=== PATIENT | male | born 1980 | race African-American/Black ===

== ENCOUNTER 2017-01-16 04:27 | Emergency (ER) | payer OTHER ==
[2017-01-16 04:35] VITALS: BP 119/74; PULSE 75; RESP 20; TEMP 98.8
[2017-01-16] MEDS ORDERED: CEPHALEXIN 500 MG CAP PO STA (05:18)
[2017-01-16] MEDS ORDERED: IBUPROFEN 800 MG TAB PO STA (05:19)
--- NOTE | 2017-01-16 05:24 | ED ---
ENT HPI - General Chief complaint: ENT Stated complaint: Sore Throat Time Seen by Provider: 01/16/17 05:00 Source: patient, family, RN notes reviewed Mode of arrival: ambulatory Limitations: no limitations - History of Present Illness Initial comments: Is a 36-year-old male who presents with complaints of 2 days of sore throat and pain with swallowing. He states his is recently sick he denies any overt fevers chills or sweats just pain with swallowing. He has also had a slight cough but no phlegm production. - Related Data Home Medications Medication Instructions Recorded Confirmed Insulin Aspart [NovoLOG] 12 unit SQ TID 04/22/16 01/16/17 Insulin Glargine [Lantus] 42 unit SQ HS 04/22/16 01/16/17 Previous Rx's Medication Instructions Recorded Cephalexin [Keflex] 500 mg PO Q6HR #40 cap 01/16/17 Ibuprofen [Motrin] 800 mg PO Q6HR PRN #20 tab 01/16/17 Allergies Allergy/AdvReac Type Severity Reaction Status Date / Time No Known Allergies Allergy Verified 01/16/17 04:50 Review of Systems ROS Statement: Those systems with pertinent positive or pertinent negative responses have been documented in the HPI. ROS Other: All systems not noted in ROS Statement are negative. Past Medical History Past Medical History: Asthma, Diabetes Mellitus, GERD/Reflux Additional Past Medical History / Comment(s): ULCERS History of Any Multi-Drug Resistant Organisms: None Reported Past Surgical History: No Surgical Hx Reported Additional Past Surgical History / Comment(s): TOOTH EXTRACTIONS Past Anesthesia/Blood Transfusion Reactions: No Reported Reaction Past Psychological History: No Psychological Hx Reported Smoking Status: Current every day smoker Past Alcohol Use History: None Reported Additional Past Alcohol Use History / Comment(s): STARTED SMOKING AT AGE 13 - QUIT CIGARETTTES 2.5 YEARS AGO NOW SMOKES 1-2 CIGARS DAILY Past Drug Use History: Marijuana Additional Drug Use History / Comment(s): DENIES ANY DRUG USE CURRENTLY - Past Family History Father Family Medical History: Diabetes Mellitus Additional Family Medical History / Comment(s): GLAUCOMA Mother Family Medical History: Diabetes Mellitus, Seizure Disorder General Exam - General Exam Comments Initial Comments: This is a well-developed well-nourished awake alert oriented times x 3 male Limitations: no limitations General appearance: alert, in no apparent distress Head exam: Present: atraumatic, normocephalic, normal inspection Eye exam: Present: normal appearance, PERRL, EOMI. Absent: scleral icterus, conjunctival injection, periorbital swelling ENT exam: Present: other (Posterior pharyngeal erythema no definite exudates) Neck exam: Present: normal inspection, tenderness, full ROM, lymphadenopathy. Absent: meningismus Respiratory exam: Present: normal lung sounds bilaterally. Absent: respiratory distress, wheezes, rales, rhonchi, stridor Cardiovascular Exam: Present: regular rate, normal rhythm, normal heart sounds. Absent: systolic murmur, diastolic murmur, rubs, gallop, clicks Extremities exam: Present: normal inspection, full ROM, normal capillary refill. Absent: tenderness, pedal edema, joint swelling, calf tenderness Neurological exam: Present: alert, oriented X3, CN II-XII intact Psychiatric exam: Present: normal affect, normal mood Skin exam: Present: warm, dry, intact, normal color. Absent: rash Course Vital Signs 01/16/17 04:32 Temperature 98.8 F Pulse Rate 75 Respiratory 20 Rate Blood Pressure 119/74 O2 Sat by Pulse 98 Oximetry Medical Decision Making - Medical Decision Making The presentation is consistent with tonsillitis he will be placed on appropriate medication. Disposition Clinical Impression: Tonsillitis Disposition: HOME SELF-CARE Condition: Good Instructions: Tonsillitis (ED) Prescriptions: Cephalexin [Keflex] 500 mg PO Q6HR #40 cap Ibuprofen [Motrin] 800 mg PO Q6HR PRN #20 tab PRN Reason: Pain
== END 2017-01-16 05:27 | disposition home or self-care (01) ==
LOC: EC 04:27
DX: J03.90 Acute tonsillitis, unspecified (principal); E11.9 Type 2 diabetes mellitus without complications; F17.210 Nicotine dependence, cigarettes, uncomplicated; Z79.4 Long term (current) use of insulin
CPT/HCPCS: 99282

== ENCOUNTER 2017-04-02 09:39 | Observation (INO) | payer OTHER ==
[2017-04-02] MEDS ORDERED: SODIUM CHLORIDE 0.9% 1,000 ML IV STA (09:59)
[2017-04-02] MEDS ORDERED: ONDANSETRON 4 MG/2 ML VIAL IVP STA (09:59)
[2017-04-02] MEDS ORDERED: HYDROmorphone 1 MG/ML 1 ML SYRINGE IVP STA (09:59)
--- NOTE | 2017-04-02 10:06 | ED ---
Abdominal Pain HPI - General Chief Complaint: Abdominal Pain Stated Complaint: side pain Time Seen by Provider: 04/02/17 09:54 Source: patient, RN notes reviewed Mode of arrival: ambulatory Limitations: no limitations - History of Present Illness Initial Comments: 36-year-old male presents to the emergency department with a chief complaint of right flank pain. Patient has noticed this for the past few days. It been getting worse today. Patient does admit to a history kidney stones and states this feels much like it. Patient has noticed some blood in the urine. Patient denies any fever chills with this. Patient denies any cough cold runny nose. Patient states she was concerned due to his continued pain and discomfort so he thought that he should be evaluated. Patient states is not currently having any other symptoms at this time. Patient denies any recent fever, chills, shortness of breath, chest pain, back pain, nausea vomiting, numbness or tingling, constipation or diarrhea, headaches or visual changes, or any other current symptoms. - Related Data Home Medications Medication Instructions Recorded Confirmed Insulin Aspart [NovoLOG] 12 unit SQ TID 04/22/16 01/16/17 Insulin Glargine [Lantus] 42 unit SQ HS 04/22/16 01/16/17 Previous Rx's Medication Instructions Recorded Cephalexin [Keflex] 500 mg PO Q6HR #40 cap 01/16/17 Ibuprofen [Motrin] 800 mg PO Q6HR PRN #20 tab 01/16/17 Allergies Allergy/AdvReac Type Severity Reaction Status Date / Time No Known Allergies Allergy Verified 04/02/17 09:46 Review of Systems ROS Statement: Those systems with pertinent positive or pertinent negative responses have been documented in the HPI. ROS Other: All systems not noted in ROS Statement are negative. Past Medical History Past Medical History: Asthma, Diabetes Mellitus, GERD/Reflux Additional Past Medical History / Comment(s): ULCERS History of Any Multi-Drug Resistant Organisms: None Reported Past Surgical History: No Surgical Hx Reported Additional Past Surgical History / Comment(s): TOOTH EXTRACTIONS Past Anesthesia/Blood Transfusion Reactions: No Reported Reaction Past Psychological History: No Psychological Hx Reported Smoking Status: Current every day smoker Past Alcohol Use History: Occasional Additional Past Alcohol Use History / Comment(s): STARTED SMOKING AT AGE 13 - QUIT CIGARETTTES 2.5 YEARS AGO NOW SMOKES 1-2 CIGARS DAILY Past Drug Use History: Marijuana Additional Drug Use History / Comment(s): DENIES ANY DRUG USE CURRENTLY - Past Family History Father Family Medical History: Diabetes Mellitus Additional Family Medical History / Comment(s): GLAUCOMA Mother Family Medical History: Diabetes Mellitus, Seizure Disorder General Exam - General Exam Comments Initial Comments: General: The patient is awake and alert, in no distress, and does not appear acutely ill. Eye: Pupils are equal, round and reactive to light, extra-ocular movements are intact; there is normal conjunctiva bilaterally. No signs of icterus. Ears, nose, mouth and throat: There are moist mucous membranes. Neck: The neck is supple, there is no tenderness. Cardiovascular: There is a regular rate and rhythm. No murmur, rub or gallop is appreciated. Respiratory: Lungs are clear to auscultation, respirations are non-labored, breath sounds are equal. No wheezes, stridor, rales, or rhonchi. Gastrointestinal: Soft, non-distended, non-tender abdomen without masses or organomegaly noted. There is no rebound or guarding present. No CVA tenderness. Bowel sounds are unremarkable. Back: There is no tenderness to palpation in the midline. There is no obvious deformity. No rashes noted. Musculoskeletal: Normal ROM, no tenderness, There is no pedal edema. There is no calf tenderness or swelling. Sensation intact. Pulses equal bilaterally 2+. Neurological: CN II-XII intact, There are no obvious motor or sensory deficits. Coordination appears grossly intact. Speech is normal. Skin: Skin is warm and dry and no rashes or lesions are noted. Psychiatric: Cooperative, appropriate mood & affect, normal judgment. Limitations: no limitations Course Vital Signs 04/02/17 09:41 Temperature 97.8 F Pulse Rate 93 Respiratory 18 Rate Blood Pressure 131/80 O2 Sat by Pulse 97 Oximetry Medical Decision Making - Medical Decision Making 36-year-old male presents to the emergency Department chief complaint of right- sided flank pain. At this time patient does have an elevated amylase and lipase with suspicion for acute pancreatitis with a ultrasound showing gallbladder sludge. He has some tenderness in the right upper quadrant on ultrasound. This appears only blood cell count and no fever. This time we did discuss that we will admit the patient for IV hydration. She does agree with the plan. All questions have been answered. - Lab Data Result diagrams: 04/02/17 10:25 04/02/17 10:25 Lab Results 04/02/17 04/02/17 04/02/17 Range/Units 09:48 10:25 10:25 WBC 5.9 (3.8-10.6) k/uL RBC 5.08 (4.30-5.90) m/uL Hgb 16.0 (13.0-17.5) gm/dL Hct 45.6 (39.0-53.0) % MCV 89.9 (80.0-100.0) fL MCH 31.5 (25.0-35.0) pg MCHC 35.1 (31.0-37.0) g/dL RDW 13.2 (11.5-15.5) % Plt Count 204 (150-450) k/uL Neutrophils % 55 % Lymphocytes % 32 % Monocytes % 6 % Eosinophils % 3 % Basophils % 1 % Neutrophils # 3.2 (1.3-7.7) k/uL Lymphocytes # 1.9 (1.0-4.8) k/uL Monocytes # 0.3 (0-1.0) k/uL Eosinophils # 0.2 (0-0.7) k/uL Basophils # 0.0 (0-0.2) k/uL Sodium 137 (137-145) mmol/L Potassium 4.0 (3.5-5.1) mmol/L Chloride 103 (98-107) mmol/L Carbon Dioxide 26 (22-30) mmol/L Anion Gap 8 mmol/L BUN 14 (9-20) mg/dL Creatinine 0.78 (0.66-1.25) mg/dL Est GFR (MDRD) Af Amer >60 (>60 ml/min/1.73 sqM) Est GFR (MDRD) Non-Af >60 (>60 ml/min/1.73 sqM) Glucose 316 H (74-99) mg/dL Calcium 8.9 (8.4-10.2) mg/dL Total Bilirubin 1.3 (0.2-1.3) mg/dL AST 20 (17-59) U/L ALT 30 (21-72) U/L Alkaline Phosphatase 118 (38-126) U/L Total Protein 7.3 (6.3-8.2) g/dL Albumin 4.2 (3.5-5.0) g/dL Amylase 114 H (30-110) U/L Lipase 691 H (23-300) U/L Urine Color Light Yellow Urine Appearance Clear (Clear) Urine pH 7.0 (5.0-8.0) Ur Specific [place] 1.037 H (1.001-1.035) Urine Protein Negative (Negative) Urine Glucose (UA) 4+ H (Negative) Urine Ketones 1+ H (Negative) Urine Blood Negative (Negative) Urine Nitrite Negative (Negative) Urine Bilirubin Negative (Negative) Urine Urobilinogen 3.0 (<2.0) mg/dL Ur Leukocyte Esterase Negative (Negative) - Radiology Data Radiology results: report reviewed, image reviewed Disposition Clinical Impression: Acute pancreatitis, Hyperglycemia Disposition: ADMITTED IP TO THIS [facility] Condition: Stable Referrals: Jase Tomlin MD [Primary Care Provider] - 1-2 days Time of Disposition: 12:18 Decision Date: 04/02/17 Decision Time: 12:18
[2017-04-02 10:42] LABS: Appearance,Urine Clear (Clear); Bilirubin,Urine Negative (Negative); Glucose,Urine (UA) 4+ (Negative); Ketones,Urine 1+ (Negative); Leukocyte Esterase,Urine Negative (Negative); Nitrite,Urine Negative (Negative); Protein,Urine Negative (Negative); Specific Gravity,Urine 1.037 (1.001-1.035); UA Billing (MACRO vs. MICRO) CHEM
[2017-04-02 10:42] LABS: Basophils % (A) 1 %; CH 32.4; CHCM 36.2; Eosinophils # (A) 0.2 k/uL (0-0.7); Eosinophils % (A) 3 %; HCT 45.6 % (39.0-53.0); HDW 2.98; Luc % (Auto) 3; Lymphocytes # (A) 1.9 k/uL (1.0-4.8); Lymphocytes % (A) 32 %; MCH 31.5 pg (25.0-35.0); MCHC 35.1 g/dL (31.0-37.0); MCV 89.9 fL (80.0-100.0); Mean Platelet Volume 6.7; Monocytes # (A) 0.3 k/uL (0-1.0); Monocytes % (A) 6 %; Neutrophils # (A) 3.2 k/uL (1.3-7.7); Neutrophils % (A) 55 %; RBC 5.08 m/uL (4.30-5.90); RDW 13.2 % (11.5-15.5); WBC 5.9 k/uL (3.8-10.6); WBC (Perox) 5.47
--- NOTE | 2017-04-02 10:52 | XR ---
EXAMINATION TYPE: XR KUB DATE OF EXAM: 04/02/2017 10:46 AM CLINICAL DATA: 36-year-old male right abdominal pain for one week, [facility] COMPARISON: 02/04/2014 FINDINGS: Lung bases are clear. No evidence for free intraperitoneal air. No dilated small bowel or air-fluid levels. Scattered air and stool seen throughout the colon extendi ng distally into the rectum. Mild stool burden. No suspicious calcifications identified. IMPRESSION: Mild stool burden. No evidence of bowel obstruction or free intraperitoneal air.
[2017-04-02 10:54] LABS: ALT 30 U/L (21-72); AST 20 U/L (17-59); Alkaline Phosphatase 118 U/L (38-126); Amylase 114 U/L (30-110); Anion Gap 8 mmol/L; Blood Urea Nitrogen 14 mg/dL (9-20); Calcium 8.9 mg/dL (8.4-10.2); Carbon Dioxide 26 mmol/L (22-30); Chloride 103 mmol/L (98-107); Glucose 316 mg/dL (74-99); Non-African American GFR(MDRD) >60 (>60 ml/min/1.73 sqM); Sodium 137 mmol/L (137-145); Total Bilirubin 1.3 mg/dL (0.2-1.3); Total Protein 7.3 g/dL (6.3-8.2)
--- NOTE | 2017-04-02 12:10 | US ---
EXAMINATION TYPE: US abdomen limited DATE OF EXAM: 04/02/2017 11:33 AM COMPARISON: 02/27/2016 CT CLINICAL HISTORY: 36-year-old male RUQ pain, elevated lipase and amylase. Diabetic with RUQ pain x 1 week TECHNIQUE: Multiple sonographic images of the right upper quadrant are obtained. FINDINGS: [employer]ATOR NOTES:bowel gas limits exam Liver Length: 16.8 cm Gallbladder Wall: 0.2 cm CBD: 0.6 cm Right Kidney: 10.6 x 5.4 x5.9 cm Pancreas: Head and tail obscured by bowel gas, otherwise wnl Liver: limited intercostal windows shows slight increased echogenicity but otherwise without gross ab normality. Gallbladder: No abnormal gallbladder distention, wall thickening, pericholecystic fluid, or shadowing calculi. Multiple sludge is seen. Evidence for sonographic Hedrick's sign: yes CBD: 5.5 mm Right Kidney: No hydronephrosis. IMPRESSION: 1. Positive sonographic Hedrick sign. This could reflect referred pain as there is only some mobile sl udge in the gallbladder without ancillary imaging findings of acute cholecystitis. If further imaging evaluation of the gallbladder is desired, HIDA scan can be performed. 2. Bile duct at the upper limits of normal in caliber. Correlate with alkaline phosphatase and biliru bin levels to exclude the possibility of early biliary obstruction. 3. Possible mild fatty infiltration of the liver.
[2017-04-02] MEDS ORDERED: NALOXONE 0.4 MG/ML 1 ML VIAL IV PRN (12:19)
[2017-04-02] MEDS ORDERED: ONDANSETRON 4 MG/2 ML VIAL IVP PRN (12:19)
[2017-04-02] MEDS: SODIUM CHLORIDE 0.9% 1,000 ML IV SCH (12:26)
[2017-04-02 12:49] LABS: Glucose,Whole Blood 242 mg/dL (75-99)
[2017-04-02] MEDS: INSULIN LISPRO (humaLOG) 300 UNIT/3 ML VIAL SQ SCH ×3 (12:56→21:03)
[2017-04-02] MEDS: HYDROmorphone 1 MG/ML 1 ML SYRINGE IV PRN ×2 (13:23→23:51)
[2017-04-02 14:21] VITALS: BMI 32.6
[2017-04-02] MEDS ORDERED: SODIUM CHLORIDE 0.9% 1,000 ML IV ONE (15:08)
--- NOTE | 2017-04-02 15:34 | P.HPIM ---
History of Present Illness H&P Date: 04/02/17 This is a 36-year-old gentleman with history of renal colic comes in the hospital with complains of severe right flank pain. Patient stated that he was drinking heavily overnight thereafter woke up with significant pain hence came in the hospital for further evaluation. Patient states that he's had a renal stone in the past and had similar complaints at that time as well. Patient denies having any fevers chills chest pain difficulty breathing Patient does complain of associated urinary urgency no significant anterior abdominal pain is reported In the emergency room patient underwent a KUB x-ray which was noted to show stool A ultrasound of the abdomen shows gallbladder sludge and positive Hedrick's Review of Systems All systems: negative (Noted in HPI) Past Medical History Past Medical History: Asthma, Diabetes Mellitus, GERD/Reflux Additional Past Medical History / Comment(s): ULCERS History of Any Multi-Drug Resistant Organisms: None Reported Past Surgical History: No Surgical Hx Reported Additional Past Surgical History / Comment(s): TOOTH EXTRACTIONS Past Anesthesia/Blood Transfusion Reactions: No Reported Reaction Past Psychological History: No Psychological Hx Reported Smoking Status: Current every day smoker Past Alcohol Use History: Occasional Additional Past Alcohol Use History / Comment(s): STARTED SMOKING AT AGE 13 - QUIT CIGARETTTES 2.5 YEARS AGO NOW SMOKES 1-2 CIGARS DAILY Past Drug Use History: Marijuana Additional Drug Use History / Comment(s): DENIES ANY DRUG USE CURRENTLY - Past Family History Father Family Medical History: Diabetes Mellitus Additional Family Medical History / Comment(s): GLAUCOMA Mother Family Medical History: Diabetes Mellitus, Seizure Disorder Medications and Allergies Home Medications Medication Instructions Recorded Confirmed Type Insulin Aspart [NovoLOG] 12 unit SQ TID 04/22/16 04/02/17 History Insulin Glargine [Lantus] 42 unit SQ HS 04/22/16 04/02/17 History Albuterol Inhaler [Ventolin Hfa 1 - 2 puff INHALATION RT-Q4H PRN 04/02/17 History Inhaler] Allergies Allergy/AdvReac Type Severity Reaction Status Date / Time No Known Allergies Allergy Verified 04/02/17 12:48 Physical Exam Vitals: Vital Signs Temp Pulse Pulse Resp BP BP Pulse Ox 04/02/17 14:12 97.1 F L 66 16 110/63 91 L 04/02/17 13:43 97.7 F 66 16 110/63 91 L 04/02/17 13:20 96.9 F L 60 18 118/70 100 04/02/17 12:32 71 18 127/74 98 04/02/17 09:41 97.8 F 93 18 131/80 97 Intake and Output 04/02/17 04/02/17 04/02/17 06:59 14:59 22:59 Other: Voiding Method Toilet Weight 97.522 kg Patient Weight 04/03/17 06:59 Weight 97.522 kg Physical exam Gen. appearance oriented 3 in no distress Neck is supple no JVD Lungs good air entry clear to auscultation no rhonchi or wheezing Heart S1-S2 heard regular rate and rhythm no murmurs appreciated Abdomen right-sided flank pain no right upper quadrant pain is appreciated Hedrick's is negative on physical exam Neurologically cranial nerves II-12 grossly intact no focal motor or sensory deficits noted Skin no abnormalities appreciated Results CBC & Chem 7: 04/02/17 10:25 04/02/17 10:25 Labs: Abnormal Lab Results - Last 24 Hours (Table) 04/02/17 04/02/17 04/02/17 Range/Units 09:48 10:25 12:46 Glucose 316 H (74-99) mg/dL POC Glucose (mg/dL) 242 H (75-99) mg/dL Amylase 114 H (30-110) U/L Lipase 691 H (23-300) U/L Ur Specific [place] 1.037 H (1.001-1.035) Urine Glucose (UA) 4+ H (Negative) Urine Ketones 1+ H (Negative) Thrombosis Risk Factor Assmnt - Choose All That Apply Any of the Below Risk Factors Present?: No Other Risk Factors: No Other congenital or acquired thrombophilia - If yes, enter type in comment: No Thrombosis Risk Factor Assessment Level: Very Low Risk Assessment and Plan Plan: Abdominal pain secondary to renal colic #2 recent alcohol intoxication showing acute changes on the liver and an elevation of amylase and lipase #3 diabetes mellitus poorly controlled #4 intractable nausea vomiting secondary to above Plan Strict nothing by mouth 2 L of crystalloids were given 125 mL normal saline thereafter We'll continue monitoring Review labs in the a.m. We'll need to increase GFR patient does have a stool. He has to A large stone is not noted on the x-ray if patient's symptoms persist a computed tomography scan of the abdomen will be done
[2017-04-02 15:48] LABS: Hemoglobin A1C 10.1 % (4.2-6.1)
[2017-04-02 17:06] LABS: Glucose,Whole Blood 219 mg/dL (75-99)
[2017-04-02 20:08] LABS: Glucose,Whole Blood 250 mg/dL (75-99)
[2017-04-02] MEDS ORDERED: INSULIN GLARGINE 100 UNIT/ML 10 ML VIAL SQ SCH (21:00)
[2017-04-03] MEDS: SODIUM CHLORIDE 0.9% 1,000 ML IV SCH ×2 (03:52→08:55)
[2017-04-03 07:02] LABS: Glucose,Whole Blood 206 mg/dL (75-99)
[2017-04-03 07:22] LABS: Basophils % (A) 0 %; CHCM 35.6; Eosinophils # (A) 0.1 k/uL (0-0.7); Eosinophils % (A) 2 %; HCT 42.4 % (39.0-53.0); HGB 14.7 gm/dL (13.0-17.5); Luc # (Auto) 0.13; Luc % (Auto) 3; Lymphocytes # (A) 1.8 k/uL (1.0-4.8); Lymphocytes % (A) 35 %; MCH 31.3 pg (25.0-35.0); MCHC 34.7 g/dL (31.0-37.0); MCV 90.3 fL (80.0-100.0); Mean Platelet Volume 6.8; Monocytes # (A) 0.3 k/uL (0-1.0); Monocytes % (A) 6 %; Neutrophils # (A) 2.8 k/uL (1.3-7.7); Neutrophils % (A) 54 %; RBC 4.69 m/uL (4.30-5.90); RDW 13.1 % (11.5-15.5); WBC 5.2 k/uL (3.8-10.6); WBC (Perox) 4.93
[2017-04-03 07:33] LABS: ALT 26 U/L (21-72); AST 18 U/L (17-59); Alkaline Phosphatase 99 U/L (38-126); Amylase 43 U/L (30-110); Anion Gap 5 mmol/L; Blood Urea Nitrogen 11 mg/dL (9-20); Calcium 8.3 mg/dL (8.4-10.2); Carbon Dioxide 23 mmol/L (22-30); Chloride 109 mmol/L (98-107); Glucose 226 mg/dL (74-99); Non-African American GFR(MDRD) >60 (>60 ml/min/1.73 sqM); Sodium 137 mmol/L (137-145); Total Bilirubin 1.1 mg/dL (0.2-1.3); Total Protein 6.2 g/dL (6.3-8.2)
[2017-04-03] MEDS: INSULIN LISPRO (humaLOG) 300 UNIT/3 ML VIAL SQ SCH ×2 (08:52→14:09)
[2017-04-03 08:59] VITALS: PULSE 60
[2017-04-03 11:22] LABS: Glucose,Whole Blood 200 mg/dL (75-99)
[2017-04-03 15:19] VITALS: BP 130/70; RESP 16; TEMP 97.1
--- NOTE | 2017-04-03 19:25 | P.DS ---
Providers Date of admission: 04/02/17 12:19 Attending physician: Kaylee Vick Primary care physician: Nabor Lezama [facility] Course: This is a 36-year-old gentleman with history of renal colic comes in the hospital with complains of severe right flank pain. Patient stated that he was drinking heavily overnight thereafter woke up with significant pain hence came in the hospital for further evaluation. Patient states that he's had a renal stone in the past and had similar complaints at that time as well. Patient denies having any fevers chills chest pain difficulty breathing Patient does complain of associated urinary urgency no significant anterior abdominal pain is reported In the emergency room patient underwent a KUB x-ray which was noted to show stool A ultrasound of the abdomen shows gallbladder sludge and positive Hedrick's 04/03 states to be improved notes he may have passed a stone Physical exam Gen. appearance oriented 3 in no distress Neck is supple no JVD Lungs good air entry clear to auscultation no rhonchi or wheezing Heart S1-S2 heard regular rate and rhythm no murmurs appreciated Abdomen right-sided flank pain is improved Neurologically cranial nerves II-12 grossly intact no focal motor or sensory deficits noted Skin no abnormalities appreciated Assessment and Plan Plan: Abdominal pain secondary to renal colic, improved #2 recent alcohol intoxication showing acute changes on the liver and an elevation of amylase and lipase. alcohol cessation is discussed #3 diabetes mellitus poorly controlled #4 intractable nausea vomiting secondary to above ' Patient Condition at Discharge: Stable Plan - Discharge Summary Discharge Medication List Insulin Aspart [NovoLOG] 12 unit SQ TID 04/22/16 [History] Insulin Glargine [Lantus] 42 unit SQ HS 04/22/16 [History] Ibuprofen [Motrin] 800 mg PO Q6HR PRN #20 tab 01/16/17 [Rx] Albuterol Inhaler [Ventolin Hfa Inhaler] 1 - 2 puff INHALATION RT-Q4H PRN [History] Follow up Appointment(s)/Referral(s): Jase Tomlin MD [Primary Care Provider] - 1-2 days Discharge Disposition: Left Against Medical Advice
== END 2017-04-03 18:02 | disposition left against medical advice (07) ==
LOC: EC 09:39 → 3SUR 12:19 → INTOOBSV 12:19
PROVIDERS: ADMIT Internal Medicine; ATTEND Internal Medicine
DX: N23 Unspecified renal colic (principal); F10.129 Alcohol abuse with intoxication, unspecified; E11.65 Type 2 diabetes mellitus with hyperglycemia; R11.2 Nausea with vomiting, unspecified; J45.909 Unspecified asthma, uncomplicated; K21.9 Gastro-esophageal reflux disease without esophagitis; R39.15 Urgency of urination; K82.8 Other specified diseases of gallbladder; R93.2 Abnormal findings on diagnostic imaging of liver and biliary tract; R74.8 Abnormal levels of other serum enzymes; F17.290 Nicotine dependence, other tobacco product, uncomplicated; Z71.41 Alcohol abuse counseling and surveillance of alcoholic; Z83.511 Family history of glaucoma; Z83.3 Family history of diabetes mellitus; Z53.21 Procedure and treatment not carried out due to patient leaving prior to being seen by health care provider; Z87.442 Personal history of urinary calculi; Z82.0 Family history of epilepsy and other diseases of the nervous system; Z79.4 Long term (current) use of insulin; Z87.11 Personal history of peptic ulcer disease; Z87.448 Personal history of other diseases of urinary system
CPT/HCPCS: 96361; 96374; 96375; 99285; 36415; 80053 ×2; 82150 ×2; 83036; 83690 ×2; 85025 ×2; 81003; 87086; 74000; 76705; G0378 ×2; J2405; J1170

== ENCOUNTER 2017-04-19 07:44 | Emergency (ER) | payer OTHER ==
[2017-04-19 07:55] VITALS: RESP 16
[2017-04-19] MEDS ORDERED: ONDANSETRON 4 MG/2 ML VIAL IVP STA (08:16)
[2017-04-19] MEDS ORDERED: SODIUM CHLORIDE 0.9% 1,000 ML IV STA (08:16)
[2017-04-19] MEDS ORDERED: HYDROmorphone 1 MG/ML 1 ML SYRINGE IVP STA (08:16)
[2017-04-19 08:37] LABS: Appearance,Urine Clear (Clear); Basophils % (A) 1 %; Bilirubin,Urine Negative (Negative); CH 32.4; CHCM 36.3; Eosinophils # (A) 0.1 k/uL (0-0.7); Eosinophils % (A) 2 %; Glucose,Urine (UA) 4+ (Negative); HCT 46.1 % (39.0-53.0); HDW 3.07; HGB 16.4 gm/dL (13.0-17.5); Ketones,Urine 1+ (Negative); Leukocyte Esterase,Urine Negative (Negative); Luc # (Auto) 0.21; Luc % (Auto) 4; Lymphocytes % (A) 18 %; MCH 31.8 pg (25.0-35.0); MCHC 35.5 g/dL (31.0-37.0); MCV 89.6 fL (80.0-100.0); Mean Platelet Volume 7.2; Monocytes # (A) 0.3 k/uL (0-1.0); Monocytes % (A) 6 %; Neutrophils # (A) 3.7 k/uL (1.3-7.7); Neutrophils % (A) 69 %; Nitrite,Urine Negative (Negative); Protein,Urine Negative (Negative); RBC 5.14 m/uL (4.30-5.90); RDW 13.5 % (11.5-15.5); Specific Gravity,Urine 1.029 (1.001-1.035); UA Billing (MACRO vs. MICRO) CHEM; Urobilinogen,Urine <2.0 mg/dL (<2.0); WBC 5.3 k/uL (3.8-10.6); WBC (Perox) 4.96
[2017-04-19 08:48] LABS: ALT 26 U/L (21-72); AST 15 U/L (17-59); Alkaline Phosphatase 135 U/L (38-126); Amylase 40 U/L (30-110); Anion Gap 9 mmol/L; Blood Urea Nitrogen 10 mg/dL (9-20); Calcium 8.9 mg/dL (8.4-10.2); Carbon Dioxide 24 mmol/L (22-30); Chloride 101 mmol/L (98-107); Glucose 409 mg/dL (74-99); Non-African American GFR(MDRD) >60 (>60 ml/min/1.73 sqM); Potassium 4.1 mmol/L (3.5-5.1); Sodium 134 mmol/L (137-145); Total Bilirubin 1.1 mg/dL (0.2-1.3)
--- NOTE | 2017-04-19 09:00 | XR ---
EXAMINATION TYPE: XR KUB DATE OF EXAM ORDERED: 04/19/2017 HISTORY: abdominal pain. COMPARISON: Previous study dated 04/02/2017. FINDINGS: The lung bases are clear. The abdominal gas pattern is within normal limits. There is no evidence of obstruction or free air. N o unusual calcifications are seen. There are scattered air-fluid levels. IMPRESSION: FINDINGS MOST CONSISTENT WITH MILD ILEUS.
[2017-04-19] MEDS ORDERED: INSULIN LISPRO (humaLOG) 300 UNIT/3 ML VIAL SQ ONE (09:34)
--- NOTE | 2017-04-19 09:45 | ED ---
General Adult HPI - General Chief complaint: Abdominal Pain Stated complaint: abd pain Time Seen by Provider: 04/19/17 08:10 Source: patient, RN notes reviewed Mode of arrival: ambulatory Limitations: no limitations - History of Present Illness Initial comments: Patient 36-year-old male who presents emergency room today with a chief complaint of left-sided flank pain. He does admit that he's had symptoms on and off over the last few weeks. He does admit that he was seen here recently and told that he had a kidney stone bruise on the right side. Patient states he does not feel that he passed a stone. Still admits having symptoms nausea vomiting. Denies any diarrhea. States pain is worse after eating. Denies any other complaints or symptoms at this time. Patient denies any recent fever, chills, shortness of breath, chest pain, back pain, numbness or tingling, dysuria or hematuria, constipation or diarrhea, headaches or visual changes, or any other complaints. - Related Data Home Medications Medication Instructions Recorded Confirmed Insulin Aspart [NovoLOG] See Protocol SQ AC-TID 04/22/16 04/19/17 Insulin Glargine [Lantus] 50 unit SQ HS 04/22/16 04/19/17 Albuterol Inhaler [Ventolin Hfa 1 - 2 puff INHALATION RT-Q4H PRN 04/02/17 Inhaler] Cholecalciferol [Vitamin D3] 1,000 unit PO DAILY 04/19/17 04/19/17 Cyanocobalamin (Vitamin B-12) 1,000 mcg PO DAILY 04/19/17 04/19/17 [Vitamin B-12] Previous Rx's Medication Instructions Recorded Ondansetron Odt [Zofran ODT] 4 mg PO Q8HR PRN #20 tab 04/19/17 Allergies Allergy/AdvReac Type Severity Reaction Status Date / Time No Known Allergies Allergy Verified 04/19/17 08:29 Review of Systems ROS Statement: Those systems with pertinent positive or pertinent negative responses have been documented in the HPI. ROS Other: All systems not noted in ROS Statement are negative. Past Medical History Past Medical History: Asthma, Diabetes Mellitus, GERD/Reflux Additional Past Medical History / Comment(s): ULCERS, kidney stones History of Any Multi-Drug Resistant Organisms: None Reported Past Surgical History: No Surgical Hx Reported Additional Past Surgical History / Comment(s): TOOTH EXTRACTIONS Past Anesthesia/Blood Transfusion Reactions: No Reported Reaction Past Psychological History: No Psychological Hx Reported Smoking Status: Current every day smoker Past Alcohol Use History: Occasional Additional Past Alcohol Use History / Comment(s): STARTED SMOKING AT AGE 13 - QUIT CIGARETTTES 2.5 YEARS AGO NOW SMOKES 1-2 CIGARS DAILY Past Drug Use History: Marijuana Additional Drug Use History / Comment(s): DENIES ANY DRUG USE CURRENTLY - Past Family History Father Family Medical History: Diabetes Mellitus Additional Family Medical History / Comment(s): GLAUCOMA Mother Family Medical History: Diabetes Mellitus, Seizure Disorder General Exam - General Exam Comments Initial Comments: General: The patient is awake and alert, in no distress, and does not appear acutely ill. Eye: Pupils are equal, round and reactive to light, extra-ocular movements are intact. No nystagmus. There is normal conjunctiva bilaterally. No signs of icterus. Ears, nose, mouth and throat: There are moist mucous membranes and no oral lesions. Neck: The neck is supple, there is no tenderness or JVD. Cardiovascular: There is a regular rate and rhythm. No murmur, rub or gallop is appreciated. Respiratory: Lungs are clear to auscultation, respirations are non-labored, breath sounds are equal. No wheezes, stridor, rales, or rhonchi. Gastrointestinal: Normal appearance and. Normal bowel sounds. Abdomen soft on palpation. Patient does have mild tenderness left lower quadrant. No rebound tenderness. No guarding. No CVA tenderness. Musculoskeletal: Normal ROM, no tenderness. Strength 5/5. Sensation intact. Pulses equal bilaterally 2+. Neurological: A&O x 3. CN II-XII intact, There are no obvious motor or sensory deficits. Coordination appears grossly intact. Speech is normal. Skin: Skin is warm and dry and no rashes or lesions are noted. Psychiatric: Cooperative, appropriate mood & affect, normal judgment. Limitations: no limitations Course Vital Signs 04/19/17 07:52 Temperature 98.9 F Pulse Rate 84 Respiratory 16 Rate Blood Pressure 127/68 O2 Sat by Pulse 96 Oximetry Medical Decision Making - Medical Decision Making Patient's recent ultrasound does show evidence of sludge in the gallbladder. Recommend a HIDA scan at that time. This was again discussed with the patient at this time. Patient had a CAT scan approximately a month and a half ago which did show a kidney stone on the right side up in the kidney. This was also discussed with the patient. At this time his pain is more on the left side. He doesn't that is worse after eating which may be consistent with his gallbladder. Long discussion had with patient about options of CAT scan versus outpatient follow-up. Risk and benefits were discussed with the patient. At this time his labs are unremarkable other than an elevated blood glucose which she is a diabetic. Patient is advised follow-up with his family doctor over the next 2 days or return here to the emergency room symptoms increase or worsen or for any other concerns. He states understanding and is in agreement with this plan. - Lab Data Result diagrams: 04/19/17 08:15 04/19/17 08:15 Lab Results 04/19/17 04/19/17 04/19/17 Range/Units 08:15 08:15 08:15 WBC 5.3 (3.8-10.6) k/uL RBC 5.14 (4.30-5.90) m/uL Hgb 16.4 (13.0-17.5) gm/dL Hct 46.1 (39.0-53.0) % MCV 89.6 (80.0-100.0) fL MCH 31.8 (25.0-35.0) pg MCHC 35.5 (31.0-37.0) g/dL RDW 13.5 (11.5-15.5) % Plt Count 157 (150-450) k/uL Neutrophils % 69 % Lymphocytes % 18 % Monocytes % 6 % Eosinophils % 2 % Basophils % 1 % Neutrophils # 3.7 (1.3-7.7) k/uL Lymphocytes # 1.0 (1.0-4.8) k/uL Monocytes # 0.3 (0-1.0) k/uL Eosinophils # 0.1 (0-0.7) k/uL Basophils # 0.0 (0-0.2) k/uL Sodium 134 L (137-145) mmol/L Potassium 4.1 (3.5-5.1) mmol/L Chloride 101 (98-107) mmol/L Carbon Dioxide 24 (22-30) mmol/L Anion Gap 9 mmol/L BUN 10 (9-20) mg/dL Creatinine 0.79 (0.66-1.25) mg/dL Est GFR (MDRD) Af Amer >60 (>60 ml/min/1.73 sqM) Est GFR (MDRD) Non-Af >60 (>60 ml/min/1.73 sqM) Glucose 409 H (74-99) mg/dL Calcium 8.9 (8.4-10.2) mg/dL Total Bilirubin 1.1 (0.2-1.3) mg/dL AST 15 L (17-59) U/L ALT 26 (21-72) U/L Alkaline Phosphatase 135 H (38-126) U/L Total Protein 7.0 (6.3-8.2) g/dL Albumin 4.0 (3.5-5.0) g/dL Amylase 40 (30-110) U/L Lipase 72 (23-300) U/L Urine Color Light Yellow Urine Appearance Clear (Clear) Urine pH 6.0 (5.0-8.0) Ur Specific [place] 1.029 (1.001-1.035) Urine Protein Negative (Negative) Urine Glucose (UA) 4+ H (Negative) Urine Ketones 1+ H (Negative) Urine Blood Negative (Negative) Urine Nitrite Negative (Negative) Urine Bilirubin Negative (Negative) Urine Urobilinogen <2.0 (<2.0) mg/dL Ur Leukocyte Esterase Negative (Negative) Disposition Clinical Impression: Abdominal pain Disposition: HOME SELF-CARE Condition: Good Instructions: Abdominal Pain (ED) Additional Instructions: Please use medication as discussed. Please follow-up with family doctor in the next 2 days. Please return to emergency room if the symptoms increase or worsen or for any other concerns. Prescriptions: Ondansetron Odt [Zofran ODT] 4 mg PO Q8HR PRN #20 tab PRN Reason: Nausea Referrals: Leon Geronimo MD [Primary Care Provider] - 1-2 days Time of Disposition: 09:34
[2017-04-19 10:00] VITALS: BP 128/78; PULSE 60; TEMP 97
== END 2017-04-19 09:57 | disposition home or self-care (01) ==
LOC: EC 07:44
DX: R10.32 Left lower quadrant pain (principal); R11.2 Nausea with vomiting, unspecified; E11.9 Type 2 diabetes mellitus without complications; F17.290 Nicotine dependence, other tobacco product, uncomplicated; Z79.4 Long term (current) use of insulin; Z79.899 Other long term (current) drug therapy; Z87.442 Personal history of urinary calculi
CPT/HCPCS: 36415; 80053; 82150; 83690; 85025; 81003; 87086; 74000; 99284; 96374; 96375; 96361; J2405; J1170

== ENCOUNTER 2017-07-27 02:28 | Emergency (ER) | payer OTHER ==
[2017-07-27 02:46] LABS: Glucose,Whole Blood 549 mg/dL (75-99)
[2017-07-27] MEDS ORDERED: SODIUM CHLORIDE 0.9% 2,000 ML IV ONE ×2 (03:00→04:56)
[2017-07-27] MEDS ORDERED: INSULIN REGULAR 100 UNIT/ML VIAL SQ STA (03:00)
[2017-07-27 03:37] LABS: Appearance,Urine Clear (Clear); Basophils % (A) 1 %; Bilirubin,Urine Negative (Negative); CHCM 36.8; Eosinophils # (A) 0.1 k/uL (0-0.7); Eosinophils % (A) 3 %; Glucose,Urine (UA) 4+ (Negative); HCT 45.5 % (39.0-53.0); HDW 2.83; HGB 15.9 gm/dL (13.0-17.5); Ketones,Urine Negative (Negative); Leukocyte Esterase,Urine Negative (Negative); Luc # (Auto) 0.13; Luc % (Auto) 3; Lymphocytes # (A) 2.2 k/uL (1.0-4.8); Lymphocytes % (A) 50 %; MCH 31.6 pg (25.0-35.0); MCV 90.2 fL (80.0-100.0); Mean Platelet Volume 7.9; Monocytes # (A) 0.3 k/uL (0-1.0); Monocytes % (A) 6 %; Neutrophils # (A) 1.7 k/uL (1.3-7.7); Neutrophils % (A) 39 %; Nitrite,Urine Negative (Negative); Protein,Urine Negative (Negative); RBC 5.04 m/uL (4.30-5.90); RDW 14.4 % (11.5-15.5); Specific Gravity,Urine 1.029 (1.001-1.035); UA Billing (MACRO vs. MICRO) CHEM; Urobilinogen,Urine <2.0 mg/dL (<2.0); WBC 4.4 k/uL (3.8-10.6); WBC (Perox) 4.49
[2017-07-27 03:46] LABS: Anion Gap 12 mmol/L; Blood Urea Nitrogen 9 mg/dL (9-20); Calcium 9.3 mg/dL (8.4-10.2); Carbon Dioxide 23 mmol/L (22-30); Chloride 98 mmol/L (98-107); Non-African American GFR(MDRD) >60 (>60 ml/min/1.73 sqM); Potassium 4.1 mmol/L (3.5-5.1); Sodium 133 mmol/L (137-145)
[2017-07-27 03:51] LABS: Glucose,Whole Blood 488 mg/dL (75-99)
[2017-07-27 03:56] VITALS: RESP 18
[2017-07-27 03:57] LABS: Glucose 591 mg/dL (74-99)
--- NOTE | 2017-07-27 04:54 | ED ---
General Adult HPI - General Chief complaint: Recheck/Abnormal Lab/Rx Stated complaint: Blood Sugar Time Seen by Provider: 07/27/17 02:35 Source: patient Mode of arrival: ambulatory - History of Present Illness Initial comments: This patient is a 36-year-old man who presents because his blood sugar has been high. The patient states that he had run out of needles to administer his insulin. The last dose of insulin had been a little over 24 hours ago. Patient states that he has also been feeling some fatigue. He states that when he checked his blood sugar this evening's over 450. -: days(s) Improves with: none Worsens with: none Associated Symptoms: other (Fatigue) Treatments Prior to Arrival: none - Related Data Home Medications Medication Instructions Recorded Confirmed Insulin Aspart [NovoLOG] See Protocol SQ AC-TID 04/22/16 04/19/17 Insulin Glargine [Lantus] 50 unit SQ HS 04/22/16 04/19/17 Albuterol Inhaler [Ventolin Hfa 1 - 2 puff INHALATION RT-Q4H PRN 04/02/17 Inhaler] Cholecalciferol [Vitamin D3] 1,000 unit PO DAILY 04/19/17 04/19/17 Cyanocobalamin (Vitamin B-12) 1,000 mcg PO DAILY 04/19/17 04/19/17 [Vitamin B-12] Previous Rx's Medication Instructions Recorded Ondansetron Odt [Zofran ODT] 4 mg PO Q8HR PRN #20 tab 04/19/17 Allergies Allergy/AdvReac Type Severity Reaction Status Date / Time No Known Allergies Allergy Verified 04/19/17 08:29 Review of Systems ROS Statement: Those systems with pertinent positive or pertinent negative responses have been documented in the HPI. ROS Other: All systems not noted in ROS Statement are negative. Constitutional: Denies: fever, chills Eyes: Denies: vision change Respiratory: Denies: cough, dyspnea Cardiovascular: Denies: chest pain Endocrine: Reports: fatigue Gastrointestinal: Denies: abdominal pain, vomiting, diarrhea Musculoskeletal: Denies: back pain Skin: Denies: rash Neurological: Denies: headache, weakness, numbness Past Medical History Past Medical History: Asthma, Diabetes Mellitus, GERD/Reflux Additional Past Medical History / Comment(s): ULCERS, kidney stones History of Any Multi-Drug Resistant Organisms: None Reported Past Surgical History: No Surgical Hx Reported Additional Past Surgical History / Comment(s): TOOTH EXTRACTIONS Past Anesthesia/Blood Transfusion Reactions: No Reported Reaction Past Psychological History: No Psychological Hx Reported Smoking Status: Current every day smoker Past Alcohol Use History: Occasional Past Drug Use History: Marijuana - Past Family History Father Family Medical History: Diabetes Mellitus Additional Family Medical History / Comment(s): GLAUCOMA Mother Family Medical History: Diabetes Mellitus, Seizure Disorder General Exam General appearance: alert, in no apparent distress Head exam: Present: atraumatic, normocephalic ENT exam: Present: mucous membranes dry Respiratory exam: Present: normal lung sounds bilaterally. Absent: respiratory distress, wheezes, rales, rhonchi, stridor Cardiovascular Exam: Present: regular rate, normal rhythm, normal heart sounds. Absent: systolic murmur, diastolic murmur, rubs, gallop GI/Abdominal exam: Present: soft. Absent: distended, tenderness, guarding, rebound Skin exam: Present: warm, dry, intact, normal color. Absent: rash Course Vital Signs 07/27/17 07/27/17 07/27/17 02:30 03:45 04:37 Temperature 97.9 F 97.8 F Pulse Rate 87 64 66 Respiratory 16 18 18 Rate Blood Pressure 113/65 118/56 122/58 O2 Sat by Pulse 97 98 98 Oximetry 07/27/17 07:03 Temperature Pulse Rate 65 Respiratory 18 Rate Blood Pressure 116/64 O2 Sat by Pulse 97 Oximetry Medical Decision Making - Lab Data Result diagrams: 07/27/17 03:20 07/27/17 03:20 Lab Results 07/27/17 07/27/17 07/27/17 Range/Units 02:37 03:20 03:20 WBC (3.8-10.6) k/uL RBC (4.30-5.90) m/uL Hgb (13.0-17.5) gm/dL Hct (39.0-53.0) % MCV (80.0-100.0) fL MCH (25.0-35.0) pg MCHC (31.0-37.0) g/dL RDW (11.5-15.5) % Plt Count (150-450) k/uL Neutrophils % % Lymphocytes % % Monocytes % % Eosinophils % % Basophils % % Neutrophils # (1.3-7.7) k/uL Lymphocytes # (1.0-4.8) k/uL Monocytes # (0-1.0) k/uL Eosinophils # (0-0.7) k/uL Basophils # (0-0.2) k/uL Sodium 133 L (137-145) mmol/L Potassium 4.1 (3.5-5.1) mmol/L Chloride 98 (98-107) mmol/L Carbon Dioxide 23 (22-30) mmol/L Anion Gap 12 mmol/L BUN 9 (9-20) mg/dL Creatinine 0.84 (0.66-1.25) mg/dL Est GFR (MDRD) Af Amer >60 (>60 ml/min/1.73 sqM) Est GFR (MDRD) Non-Af >60 (>60 ml/min/1.73 sqM) Glucose 591 H* (74-99) mg/dL POC Glucose (mg/dL) 549 H (75-99) mg/dL POC Glu Telephone Operator ID Anshu Marcano Calcium 9.3 (8.4-10.2) mg/dL Urine Color Urine Appearance (Clear) Urine pH (5.0-8.0) Ur Specific [place] (1.001-1.035) Urine Protein (Negative) Urine Glucose (UA) (Negative) Urine Ketones (Negative) Urine Blood (Negative) Urine Nitrite (Negative) Urine Bilirubin (Negative) Urine Urobilinogen (<2.0) mg/dL Ur Leukocyte Esterase (Negative) Acetone, Qual Negative (Negative) 07/27/17 07/27/17 07/27/17 Range/Units 03:20 03:20 03:41 WBC 4.4 (3.8-10.6) k/uL RBC 5.04 (4.30-5.90) m/uL Hgb 15.9 (13.0-17.5) gm/dL Hct 45.5 (39.0-53.0) % MCV 90.2 (80.0-100.0) fL MCH 31.6 (25.0-35.0) pg MCHC 35.0 (31.0-37.0) g/dL RDW 14.4 (11.5-15.5) % Plt Count 178 (150-450) k/uL Neutrophils % 39 % Lymphocytes % 50 % Monocytes % 6 % Eosinophils % 3 % Basophils % 1 % Neutrophils # 1.7 (1.3-7.7) k/uL Lymphocytes # 2.2 (1.0-4.8) k/uL Monocytes # 0.3 (0-1.0) k/uL Eosinophils # 0.1 (0-0.7) k/uL Basophils # 0.0 (0-0.2) k/uL Sodium (137-145) mmol/L Potassium (3.5-5.1) mmol/L Chloride (98-107) mmol/L Carbon Dioxide (22-30) mmol/L Anion Gap mmol/L BUN (9-20) mg/dL Creatinine (0.66-1.25) mg/dL Est GFR (MDRD) Af Amer (>60 ml/min/1.73 sqM) Est GFR (MDRD) Non-Af (>60 ml/min/1.73 sqM) Glucose (74-99) mg/dL POC Glucose (mg/dL) 488 H (75-99) mg/dL POC Glu Telephone Operator ID Anshu Marcano Calcium (8.4-10.2) mg/dL Urine Color Colorless Urine Appearance Clear (Clear) Urine pH 5.0 (5.0-8.0) Ur Specific [place] 1.029 (1.001-1.035) Urine Protein Negative (Negative) Urine Glucose (UA) 4+ H (Negative) Urine Ketones Negative (Negative) Urine Blood Negative (Negative) Urine Nitrite Negative (Negative) Urine Bilirubin Negative (Negative) Urine Urobilinogen <2.0 (<2.0) mg/dL Ur Leukocyte Esterase Negative (Negative) Acetone, Qual (Negative) 07/27/17 07/27/17 Range/Units 04:53 06:18 WBC (3.8-10.6) k/uL RBC (4.30-5.90) m/uL Hgb (13.0-17.5) gm/dL Hct (39.0-53.0) % MCV (80.0-100.0) fL MCH (25.0-35.0) pg MCHC (31.0-37.0) g/dL RDW (11.5-15.5) % Plt Count (150-450) k/uL Neutrophils % % Lymphocytes % % Monocytes % % Eosinophils % % Basophils % % Neutrophils # (1.3-7.7) k/uL Lymphocytes # (1.0-4.8) k/uL Monocytes # (0-1.0) k/uL Eosinophils # (0-0.7) k/uL Basophils # (0-0.2) k/uL Sodium (137-145) mmol/L Potassium (3.5-5.1) mmol/L Chloride (98-107) mmol/L Carbon Dioxide (22-30) mmol/L Anion Gap mmol/L BUN (9-20) mg/dL Creatinine (0.66-1.25) mg/dL Est GFR (MDRD) Af Amer (>60 ml/min/1.73 sqM) Est GFR (MDRD) Non-Af (>60 ml/min/1.73 sqM) Glucose (74-99) mg/dL POC Glucose (mg/dL) 355 H 245 H (75-99) mg/dL POC Glu Telephone Operator ID Liz Gonzalez, Rina Calcium (8.4-10.2) mg/dL Urine Color Urine Appearance (Clear) Urine pH (5.0-8.0) Ur Specific [place] (1.001-1.035) Urine Protein (Negative) Urine Glucose (UA) (Negative) Urine Ketones (Negative) Urine Blood (Negative) Urine Nitrite (Negative) Urine Bilirubin (Negative) Urine Urobilinogen (<2.0) mg/dL Ur Leukocyte Esterase (Negative) Acetone, Qual (Negative) Disposition Clinical Impression: Hyperglycemia due to type 1 diabetes mellitus Disposition: HOME SELF-CARE Condition: Fair Instructions: Diabetic Hyperglycemia (ED) Referrals: Leon Geronimo MD [Primary Care Provider] - 1-2 days
[2017-07-27 04:55] LABS: Glucose,Whole Blood 355 mg/dL (75-99)
[2017-07-27 06:20] LABS: Glucose,Whole Blood 245 mg/dL (75-99)
[2017-07-27 08:40] VITALS: BP 118/72; PULSE 67; TEMP 98.4
== END 2017-07-27 08:40 | disposition home or self-care (01) ==
LOC: EC 02:28
DX: E10.65 Type 1 diabetes mellitus with hyperglycemia (principal); F17.200 Nicotine dependence, unspecified, uncomplicated; Z79.4 Long term (current) use of insulin; Z79.899 Other long term (current) drug therapy; Z83.3 Family history of diabetes mellitus
CPT/HCPCS: 36415; 80048; 81003; 82009; 85025; 96360; 96361; 99283

== ENCOUNTER 2018-02-01 23:49 | Emergency (ER) | payer SELFPAY ==
[2018-02-01 23:57] VITALS: RESP 18
[2018-02-02] MEDS ORDERED: SODIUM CHLORIDE 0.9% 1,000 ML IV STA ×2 (00:17→00:22)
[2018-02-02 00:25] LABS: Glucose,Whole Blood 527 mg/dL (75-99)
[2018-02-02 00:29] LABS: Basophils % (A) 0 %; Eosinophils # (A) 0.1 k/uL (0-0.7); Eosinophils % (A) 3 %; HGB 16.4 gm/dL (13.0-17.5); Lymphocytes # (A) 2.1 k/uL (1.0-4.8); Lymphocytes % (A) 42 %; MCH 30.4 pg (25.0-35.0); MCHC 34.8 g/dL (31.0-37.0); MCV 87.5 fL (80.0-100.0); Monocytes # (A) 0.2 k/uL (0-1.0); Monocytes % (A) 5 %; Neutrophils # (A) 2.3 k/uL (1.3-7.7); Neutrophils % (A) 48 %; Platelet Count 174 k/uL (150-450); RBC 5.37 m/uL (4.30-5.90); RDW 12.8 % (11.5-15.5); WBC 4.9 k/uL (3.8-10.6)
[2018-02-02 00:47] LABS: ALT 21 U/L (21-72); AST 22 U/L (17-59); Alkaline Phosphatase 215 U/L (38-126); Amylase 47 U/L (30-110); Anion Gap 11 mmol/L; Blood Urea Nitrogen 16 mg/dL (9-20); Calcium 9.6 mg/dL (8.4-10.2); Carbon Dioxide 24 mmol/L (22-30); Chloride 99 mmol/L (98-107); Lipase 148 U/L (23-300); Magnesium 1.8 mg/dL (1.6-2.3); Phosphorus 4.4 mg/dL (2.5-4.5); Potassium 4.4 mmol/L (3.5-5.1); Sodium 134 mmol/L (137-145); Total Bilirubin 0.7 mg/dL (0.2-1.3); Total Protein 6.8 g/dL (6.3-8.2)
--- NOTE | 2018-02-02 00:54 | ED ---
General Adult HPI - General Chief complaint: Recheck/Abnormal Lab/Rx Stated complaint: Hyperglycemia Time Seen by Provider: 02/02/18 00:00 Source: patient, RN notes reviewed Mode of arrival: ambulatory Limitations: no limitations - History of Present Illness Initial comments: This is a 37-year-old male who presents to the emergency department with chief complaint of hyperglycemia. Patient is accompanied by his and niece. He states that his glucometer at home has been reading "high" since Tuesday. He states that he is a type I diabetic and uses sliding scale NovoLog and Lantus. His states that he did take 14 units of NovoLog at approximately 6 PM this evening and it did bring his glucose down to 560. Patient states he was hospitalized for DKA 1 year ago. He admits to some generalized mild abdominal pain and diarrhea but denies nausea or vomiting or constipation. Denies fevers or chills. States that he has been urinating and drinking more frequently. He states that he is feeling very tired. Patient states that he is a patient at the [facility] locally. He states that he sees multiple providers there who prescribe him his medications. Patient denies any chest pain or shortness of breath, numbness or tingling, dysuria or hematuria, headache or dizziness. - Related Data Home Medications Medication Instructions Recorded Confirmed Insulin Aspart [NovoLOG See Protocol SQ AC-TID 04/22/16 04/19/17 (formulary)] Insulin Glargine [Lantus] 50 unit SQ HS 04/22/16 04/19/17 Albuterol Inhaler [Ventolin Hfa 1 - 2 puff INHALATION RT-Q4H PRN 04/02/17 Inhaler] Cholecalciferol [Vitamin D3] 1,000 unit PO DAILY 04/19/17 04/19/17 Cyanocobalamin (Vitamin B-12) 1,000 mcg PO DAILY 04/19/17 04/19/17 [Vitamin B-12] Previous Rx's Medication Instructions Recorded Ondansetron Odt [Zofran ODT] 4 mg PO Q8HR PRN #20 tab 04/19/17 Allergies Allergy/AdvReac Type Severity Reaction Status Date / Time No Known Allergies Allergy Verified 02/01/18 23:57 Review of Systems ROS Statement: Those systems with pertinent positive or pertinent negative responses have been documented in the HPI. ROS Other: All systems not noted in ROS Statement are negative. Past Medical History Past Medical History: Asthma, Diabetes Mellitus, GERD/Reflux Additional Past Medical History / Comment(s): ULCERS, kidney stones History of Any Multi-Drug Resistant Organisms: None Reported Past Surgical History: No Surgical Hx Reported Additional Past Surgical History / Comment(s): TOOTH EXTRACTIONS Past Anesthesia/Blood Transfusion Reactions: No Reported Reaction Past Psychological History: No Psychological Hx Reported Smoking Status: Current every day smoker Past Alcohol Use History: Occasional Past Drug Use History: Marijuana - Past Family History Father Family Medical History: Diabetes Mellitus Additional Family Medical History / Comment(s): GLAUCOMA Mother Family Medical History: Diabetes Mellitus, Seizure Disorder General Exam - General Exam Comments Initial Comments: General: Awake and alert, well-developed; in no apparent distress.the son appear acutely ill. Lying comfortably in bed. and niece are at bedside. HEENT: Head atraumatic, normocephalic. Pupils are equal, round and reactive to light. Extraocular movements intact. Oropharynx moist without erythema or exudate. Neck: Supple. Normal ROM. Cardiovascular: Regular rate and rhythm. No murmurs, rubs or gallops. Chest symmetrical. Respiratory: Lungs clear to auscultation bilaterally. No wheezes, rales or rhonchi. Normal respiratory effort with no use of accessory muscles. Abdomen: Soft, non-tender, non-distended. No rigidity, rebound or guarding. Normal bowel sounds in all 4 quadrants. Musculoskeletal: Normal ROM, no tenderness bilateral upper and lower extremities. Ambulating normally. Skin: [place], warm and dry without rashes or lesions. Neurological: Alert and oriented x3. CN II-XII grossly intact. Speech is fluent and answers are appropriate. No focal neuro deficits. Psychiatric: Normal mood and affect. No overt signs of depression or anxiety noted. Limitations: no limitations Course Vital Signs 02/01/18 02/02/18 02/02/18 23:54 01:10 01:27 Temperature 97.4 F L 97.6 F Pulse Rate 71 58 L 56 L Respiratory 18 18 18 Rate Blood Pressure 113/57 112/58 112/58 O2 Sat by Pulse 100 98 97 Oximetry 02/02/18 03:05 Temperature 98.4 F Pulse Rate 65 Respiratory 18 Rate Blood Pressure 113/74 O2 Sat by Pulse 97 Oximetry EKG Findings - EKG Comments: EKG Findings:: 00:29:01. Sinus bradycardia with early repolarization. Ventricular rate 57 bpm, AK interval 146, QRS duration 88, QT/QTc 400/389 Medical Decision Making - Medical Decision Making This is a 37-year-old male with history of type 1 diabetes who presented to the emergency department with chief complaint of hyperglycemia. Patient states that his glucometer has been reading "high" since Tuesday. This evening he administered 14 units of NovoLog and was able to get his blood sugar down to 560. Patient admits to associated mild generalized abdominal pain and diarrhea but denies nausea or vomiting, fevers or chills. Labs were drawn. Glucose was 548. Anion gap was within normal limits. Acetone was negative. UA revealed 4 + glucose but was negative for ketones. CBC and electrolytes were within normal limits. Patient is not in DKA. Patient received 2 L boluses of normal saline. On recheck, glucose was 409 and patient was given 7 units of Humalog. Blood glucose has been trending downward. Currently at 355. Patient states that he is feeling good and wishes to be discharged home. I advised patient to check his blood sugar when he gets home and if needed, he is to administer insulin. He is to follow-up with his primary care provider tomorrow morning for proper adjustment of his medications. Patient is in no acute distress will be discharged home at this time. He is in agreement and voices understanding. All questions were answered. - Lab Data Result diagrams: 02/02/18 00:10 02/02/18 00:10 Lab Results 02/02/18 02/02/18 02/02/18 Range/Units 00:05 00:10 00:10 WBC 4.9 (3.8-10.6) k/uL RBC 5.37 (4.30-5.90) m/uL Hgb 16.4 (13.0-17.5) gm/dL Hct 47.0 (39.0-53.0) % MCV 87.5 (80.0-100.0) fL MCH 30.4 (25.0-35.0) pg MCHC 34.8 (31.0-37.0) g/dL RDW 12.8 (11.5-15.5) % Plt Count 174 (150-450) k/uL Neutrophils % 48 % Lymphocytes % 42 % Monocytes % 5 % Eosinophils % 3 % Basophils % 0 % Neutrophils # 2.3 (1.3-7.7) k/uL Lymphocytes # 2.1 (1.0-4.8) k/uL Monocytes # 0.2 (0-1.0) k/uL Eosinophils # 0.1 (0-0.7) k/uL Basophils # 0.0 (0-0.2) k/uL Sodium 134 L (137-145) mmol/L Potassium 4.4 (3.5-5.1) mmol/L Chloride 99 (98-107) mmol/L Carbon Dioxide 24 (22-30) mmol/L Anion Gap 11 mmol/L BUN 16 (9-20) mg/dL Creatinine 0.90 (0.66-1.25) mg/dL Est GFR (CKD-EPI)AfAm >90 (>60 ml/min/1.73 sqM) Est GFR (CKD-EPI)NonAf >90 (>60 ml/min/1.73 sqM) Glucose 548 H* (74-99) mg/dL POC Glucose (mg/dL) 527 H (75-99) mg/dL POC Glu Track Fitter ID Veda Corrigan Calcium 9.6 (8.4-10.2) mg/dL Phosphorus 4.4 (2.5-4.5) mg/dL Magnesium 1.8 (1.6-2.3) mg/dL Total Bilirubin 0.7 (0.2-1.3) mg/dL AST 22 (17-59) U/L ALT 21 (21-72) U/L Alkaline Phosphatase 215 H (38-126) U/L Total Protein 6.8 (6.3-8.2) g/dL Albumin 4.0 (3.5-5.0) g/dL Amylase 47 (30-110) U/L Lipase 148 (23-300) U/L Urine Color Urine Appearance (Clear) Urine pH (5.0-8.0) Ur Specific [place] (1.001-1.035) Urine Protein (Negative) Urine Glucose (UA) (Negative) Urine Ketones (Negative) Urine Blood (Negative) Urine Nitrite (Negative) Urine Bilirubin (Negative) Urine Urobilinogen (<2.0) mg/dL Ur Leukocyte Esterase (Negative) Acetone, Qual Negative (Negative) 02/02/18 02/02/18 02/02/18 Range/Units 00:45 01:29 02:29 WBC (3.8-10.6) k/uL RBC (4.30-5.90) m/uL Hgb (13.0-17.5) gm/dL Hct (39.0-53.0) % MCV (80.0-100.0) fL MCH (25.0-35.0) pg MCHC (31.0-37.0) g/dL RDW (11.5-15.5) % Plt Count (150-450) k/uL Neutrophils % % Lymphocytes % % Monocytes % % Eosinophils % % Basophils % % Neutrophils # (1.3-7.7) k/uL Lymphocytes # (1.0-4.8) k/uL Monocytes # (0-1.0) k/uL Eosinophils # (0-0.7) k/uL Basophils # (0-0.2) k/uL Sodium (137-145) mmol/L Potassium (3.5-5.1) mmol/L Chloride (98-107) mmol/L Carbon Dioxide (22-30) mmol/L Anion Gap mmol/L BUN (9-20) mg/dL Creatinine (0.66-1.25) mg/dL Est GFR (CKD-EPI)AfAm (>60 ml/min/1.73 sqM) Est GFR (CKD-EPI)NonAf (>60 ml/min/1.73 sqM) Glucose (74-99) mg/dL POC Glucose (mg/dL) 409 H 400 H (75-99) mg/dL POC Glu Track Fitter ID [place], Jaguar Ricardoulip, Jaguar Calcium (8.4-10.2) mg/dL Phosphorus (2.5-4.5) mg/dL Magnesium (1.6-2.3) mg/dL Total Bilirubin (0.2-1.3) mg/dL AST (17-59) U/L ALT (21-72) U/L Alkaline Phosphatase (38-126) U/L Total Protein (6.3-8.2) g/dL Albumin (3.5-5.0) g/dL Amylase (30-110) U/L Lipase (23-300) U/L Urine Color Colorless Urine Appearance Clear (Clear) Urine pH 6.5 (5.0-8.0) Ur Specific [place] 1.024 (1.001-1.035) Urine Protein Negative (Negative) Urine Glucose (UA) 4+ H (Negative) Urine Ketones Negative (Negative) Urine Blood Negative (Negative) Urine Nitrite Negative (Negative) Urine Bilirubin Negative (Negative) Urine Urobilinogen <2.0 (<2.0) mg/dL Ur Leukocyte Esterase Negative (Negative) Acetone, Qual (Negative) 02/02/18 02/02/18 Range/Units 03:03 03:33 WBC (3.8-10.6) k/uL RBC (4.30-5.90) m/uL Hgb (13.0-17.5) gm/dL Hct (39.0-53.0) % MCV (80.0-100.0) fL MCH (25.0-35.0) pg MCHC (31.0-37.0) g/dL RDW (11.5-15.5) % Plt Count (150-450) k/uL Neutrophils % % Lymphocytes % % Monocytes % % Eosinophils % % Basophils % % Neutrophils # (1.3-7.7) k/uL Lymphocytes # (1.0-4.8) k/uL Monocytes # (0-1.0) k/uL Eosinophils # (0-0.7) k/uL Basophils # (0-0.2) k/uL Sodium (137-145) mmol/L Potassium (3.5-5.1) mmol/L Chloride (98-107) mmol/L Carbon Dioxide (22-30) mmol/L Anion Gap mmol/L BUN (9-20) mg/dL Creatinine (0.66-1.25) mg/dL Est GFR (CKD-EPI)AfAm (>60 ml/min/1.73 sqM) Est GFR (CKD-EPI)NonAf (>60 ml/min/1.73 sqM) Glucose (74-99) mg/dL POC Glucose (mg/dL) 384 H 355 H (75-99) mg/dL POC Glu Track Fitter ID Jaguar [place] Tiffany Calcium (8.4-10.2) mg/dL Phosphorus (2.5-4.5) mg/dL Magnesium (1.6-2.3) mg/dL Total Bilirubin (0.2-1.3) mg/dL AST (17-59) U/L ALT (21-72) U/L Alkaline Phosphatase (38-126) U/L Total Protein (6.3-8.2) g/dL Albumin (3.5-5.0) g/dL Amylase (30-110) U/L Lipase (23-300) U/L Urine Color Urine Appearance (Clear) Urine pH (5.0-8.0) Ur Specific [place] (1.001-1.035) Urine Protein (Negative) Urine Glucose (UA) (Negative) Urine Ketones (Negative) Urine Blood (Negative) Urine Nitrite (Negative) Urine Bilirubin (Negative) Urine Urobilinogen (<2.0) mg/dL Ur Leukocyte Esterase (Negative) Acetone, Qual (Negative) Disposition Clinical Impression: Hyperglycemia Disposition: HOME SELF-CARE Condition: Good Instructions: Diabetic Hyperglycemia (ED) Additional Instructions: Please follow up with primary care provider within 1-2 days. Return to emergency department if symptoms should worsen or any concerns arise. Referrals: Leon Geronimo MD [Primary Care Provider] - 1-2 days Time of Disposition: 03:51
[2018-02-02 00:56] LABS: Glucose 548 mg/dL (74-99)
[2018-02-02 01:01] LABS: Appearance,Urine Clear (Clear); Bilirubin,Urine Negative (Negative); Blood,Urine Negative (Negative); Color,Urine Colorless; Glucose,Urine (UA) 4+ (Negative); Ketones,Urine Negative (Negative); Leukocyte Esterase,Urine Negative (Negative); Nitrite,Urine Negative (Negative); PH, Urine 6.5 (5.0-8.0); Protein,Urine Negative (Negative); Specific Gravity,Urine 1.024 (1.001-1.035); Urobilinogen,Urine <2.0 mg/dL (<2.0)
[2018-02-02] MEDS ORDERED: INSULIN ASPART 100 UNIT/ML 1 ML 10 ML VIAL SQ ONE ×2 (01:09→03:35)
[2018-02-02] MEDS ORDERED: KETOROLAC 30 MG/ML 1 ML VIAL IVP STA (01:14)
[2018-02-02 01:35] LABS: Glucose,Whole Blood 409 mg/dL (75-99)
[2018-02-02 02:33] LABS: Glucose,Whole Blood 400 mg/dL (75-99)
[2018-02-02 03:06] VITALS: BP 113/74; PULSE 65; TEMP 98.4
[2018-02-02 03:11] LABS: Glucose,Whole Blood 384 mg/dL (75-99)
[2018-02-02 03:38] LABS: Glucose,Whole Blood 355 mg/dL (75-99)
== END 2018-02-02 04:00 | disposition home or self-care (01) ==
LOC: EC 23:49
DX: E10.65 Type 1 diabetes mellitus with hyperglycemia (principal); R10.84 Generalized abdominal pain; R19.7 Diarrhea, unspecified; F17.200 Nicotine dependence, unspecified, uncomplicated; Z79.4 Long term (current) use of insulin; Z79.899 Other long term (current) drug therapy; Z53.8 Procedure and treatment not carried out for other reasons
CPT/HCPCS: 36415; 93005; 80053; 82150; 82009; 83690; 83735; 84100; 85025; 81003; 99285; 96374; 96361 ×2; J1885

== ENCOUNTER 2018-07-12 17:10 | Emergency (ER) | payer OTHER ==
[2018-07-12 17:44] LABS: Glucose,Whole Blood 337 mg/dL (75-99)
[2018-07-12] MEDS ORDERED: SODIUM CHLORIDE 0.9% 1,000 ML IV ONE (19:11)
[2018-07-12] MEDS ORDERED: INSULIN ASPART 100 UNIT/ML 1 ML 10 ML VIAL SQ ONE (19:11)
--- NOTE | 2018-07-12 19:27 | ED ---
Recheck HPI - General Chief Complaint: Recheck/Abnormal Lab/Rx Stated Complaint: diabetic issue Time Seen by Provider: 07/12/18 18:04 Source: patient Mode of arrival: ambulatory Limitations: no limitations - History of Present Illness Initial Comments: 37-year-old male patient presents to the emergency department today for evaluation of hyperglycemia. Patient states he has a history of diabetes and has not had his medications for the last week because he is away from home. Patient states that today he is feeling "dry", thirsty, and has been urinating more frequently. Patient states that he feels just generally unwell but denies any abdominal pain, nausea, or vomiting. Denies any fevers or chills. States he usually takes 40 units of Lantus at bedtime and NovoLog sliding scale throughout the day. Patient denies any recent rash, fever, chills, shortness breath, chest pain, diarrhea, constipation, back pain, numbness, tingling, dizziness, weakness, headache, visual changes, or any other complaints. - Related Data Home Medications Medication Instructions Recorded Confirmed Insulin Aspart [NovoLOG See Protocol SQ AC-TID 04/22/16 04/19/17 (formulary)] Insulin Glargine [Lantus] 50 unit SQ HS 04/22/16 04/19/17 Albuterol Inhaler [Ventolin Hfa 1 - 2 puff INHALATION RT-Q4H PRN 04/02/17 Inhaler] Cholecalciferol [Vitamin D3] 1,000 unit PO DAILY 04/19/17 04/19/17 Cyanocobalamin (Vitamin B-12) 1,000 mcg PO DAILY 04/19/17 04/19/17 [Vitamin B-12] Previous Rx's Medication Instructions Recorded Ondansetron Odt [Zofran ODT] 4 mg PO Q8HR PRN #20 tab 04/19/17 Insulin Aspart [NovoLOG Flexpen] 0 units SQ ACHS #2 pen 07/12/18 Insulin Glargine,Hum.rec.anlog 40 unit SQ HS #2 pen 07/12/18 [Lantus Solostar] [place], Insulin Disposable [Bd 1 each MC QID #70 dis.needle 07/12/18 Ultra-Fine Pen Needle 4mm 32g] Allergies Allergy/AdvReac Type Severity Reaction Status Date / Time No Known Allergies Allergy Verified 07/12/18 17:32 Review of Systems ROS Statement: Those systems with pertinent positive or pertinent negative responses have been documented in the HPI. ROS Other: All systems not noted in ROS Statement are negative. Past Medical History Past Medical History: Asthma, Diabetes Mellitus, GERD/Reflux Additional Past Medical History / Comment(s): ULCERS, kidney stones History of Any Multi-Drug Resistant Organisms: None Reported Past Surgical History: No Surgical Hx Reported Additional Past Surgical History / Comment(s): TOOTH EXTRACTIONS Past Anesthesia/Blood Transfusion Reactions: No Reported Reaction Past Psychological History: No Psychological Hx Reported Smoking Status: Current every day smoker Past Alcohol Use History: Occasional Past Drug Use History: Marijuana - Past Family History Father Family Medical History: Diabetes Mellitus Additional Family Medical History / Comment(s): GLAUCOMA Mother Family Medical History: Diabetes Mellitus, Seizure Disorder General Exam Limitations: no limitations General appearance: alert, in no apparent distress, other (This is a well- developed, well-nourished adult male patient in no acute distress. Vital signs upon presentation are temperature 98.4F, pulse 79, respirations 20, blood pressure 114/70, pulse ox 99% on room air.) Eye exam: Present: normal appearance, PERRL, EOMI. Absent: scleral icterus, conjunctival injection, periorbital swelling ENT exam: Present: normal exam, normal oropharynx, mucous membranes moist Respiratory exam: Present: normal lung sounds bilaterally. Absent: respiratory distress, wheezes, rales, rhonchi, stridor Cardiovascular Exam: Present: regular rate, normal rhythm, normal heart sounds. Absent: systolic murmur, diastolic murmur, rubs, gallop, clicks GI/Abdominal exam: Present: soft, normal bowel sounds. Absent: distended, tenderness, guarding, rebound, rigid Neurological exam: Present: alert, oriented X3, CN II-XII intact Psychiatric exam: Present: normal affect, normal mood Skin exam: Present: warm, dry, intact, normal color. Absent: rash Course Vital Signs 07/12/18 07/12/18 17:21 22:24 Temperature 98.4 F 98.6 F Pulse Rate 79 57 L Respiratory 20 17 Rate Blood Pressure 114/70 119/78 O2 Sat by Pulse 99 98 Oximetry Medical Decision Making - Medical Decision Making 37-year-old male patient presents to emergency department today for evaluation of elevated blood sugar, increased thirst, and increased frequency of urination. Patient denies any abdominal pain, nausea, or vomiting. Labs reviewed and did reveal an elevated blood sugar at 306, anion gap was 12, CO2 is 21, acetone negative. Patient was given IV fluids here in the department. He states he is feeling somewhat improved after receiving both insulin and fluids. Patient is not staying at home and down has no axis to his insulin so we will provide prescriptions for these. Patient is instructed to follow-up with his primary care physician and obtain his supplies as soon as possible. Return parameters were discussed in detail. He verbalizes understanding and agrees with this plan. - Lab Data Result diagrams: 07/12/18 18:15 07/12/18 18:15 Lab Results 07/12/18 07/12/18 07/12/18 Range/Units 17:39 18:15 18:15 WBC 4.9 (3.8-10.6) k/uL RBC 5.17 (4.30-5.90) m/uL Hgb 16.4 (13.0-17.5) gm/dL Hct 48.4 (39.0-53.0) % MCV 93.6 (80.0-100.0) fL MCH 31.6 (25.0-35.0) pg MCHC 33.8 (31.0-37.0) g/dL RDW 13.1 (11.5-15.5) % Plt Count 159 (150-450) k/uL Neutrophils % 52 % Lymphocytes % 39 % Monocytes % 5 % Eosinophils % 2 % Basophils % 0 % Neutrophils # 2.5 (1.3-7.7) k/uL Lymphocytes # 1.9 (1.0-4.8) k/uL Monocytes # 0.2 (0-1.0) k/uL Eosinophils # 0.1 (0-0.7) k/uL Basophils # 0.0 (0-0.2) k/uL Sodium 136 L (137-145) mmol/L Potassium 4.2 (3.5-5.1) mmol/L Chloride 103 (98-107) mmol/L Carbon Dioxide 21 L (22-30) mmol/L Anion Gap 12 mmol/L BUN 11 (9-20) mg/dL Creatinine 0.60 L (0.66-1.25) mg/dL Est GFR (CKD-EPI)AfAm >90 (>60 ml/min/1.73 sqM) Est GFR (CKD-EPI)NonAf >90 (>60 ml/min/1.73 sqM) Glucose 306 H (74-99) mg/dL POC Glucose (mg/dL) 337 H (75-99) mg/dL POC Glu [employer]en Tank Erector ID Calcium 9.1 (8.4-10.2) mg/dL Total Bilirubin 0.7 (0.2-1.3) mg/dL AST 27 (17-59) U/L ALT 25 (21-72) U/L Alkaline Phosphatase 138 H (38-126) U/L Total Protein 6.7 (6.3-8.2) g/dL Albumin 4.0 (3.5-5.0) g/dL Acetone, Qual Negative (Negative) 07/12/18 07/12/18 07/12/18 Range/Units 19:43 20:46 22:02 WBC (3.8-10.6) k/uL RBC (4.30-5.90) m/uL Hgb (13.0-17.5) gm/dL Hct (39.0-53.0) % MCV (80.0-100.0) fL MCH (25.0-35.0) pg MCHC (31.0-37.0) g/dL RDW (11.5-15.5) % Plt Count (150-450) k/uL Neutrophils % % Lymphocytes % % Monocytes % % Eosinophils % % Basophils % % Neutrophils # (1.3-7.7) k/uL Lymphocytes # (1.0-4.8) k/uL Monocytes # (0-1.0) k/uL Eosinophils # (0-0.7) k/uL Basophils # (0-0.2) k/uL Sodium (137-145) mmol/L Potassium (3.5-5.1) mmol/L Chloride (98-107) mmol/L Carbon Dioxide (22-30) mmol/L Anion Gap mmol/L BUN (9-20) mg/dL Creatinine (0.66-1.25) mg/dL Est GFR (CKD-EPI)AfAm (>60 ml/min/1.73 sqM) Est GFR (CKD-EPI)NonAf (>60 ml/min/1.73 sqM) Glucose (74-99) mg/dL POC Glucose (mg/dL) 251 H 235 H 260 H (75-99) mg/dL POC Glu Wooden Tank Erector Tara Flor, Tara Marcano Anshu Calcium (8.4-10.2) mg/dL Total Bilirubin (0.2-1.3) mg/dL AST (17-59) U/L ALT (21-72) U/L Alkaline Phosphatase (38-126) U/L Total Protein (6.3-8.2) g/dL Albumin (3.5-5.0) g/dL Acetone, Qual (Negative) Disposition Clinical Impression: Diabetes mellitus with hyperglycemia Disposition: HOME SELF-CARE Condition: Good Instructions: Diabetic Hyperglycemia (ED) Additional Instructions: Use insulin as directed. Increase fluids. Follow-up with your primary care physician for recheck as soon as possible. Return here immediately for any new , worsening, or concerning symptoms. Prescriptions: Insulin Aspart [NovoLOG Flexpen] 0 units SQ ACHS #2 pen Insulin Glargine,Hum.rec.anlog [Lantus Solostar] 40 unit SQ HS #2 pen [place], Insulin Disposable [Bd Ultra-Fine Pen Needle 4mm 32g] 1 each QID # 70 dis.needle Is patient prescribed a controlled substance at d/c from ED?: No Referrals: Leon Geronimo MD [Primary Care Provider] - 1-2 days Time of Disposition: 22:12
[2018-07-12 19:48] LABS: Basophils % (A) 0 %; Eosinophils # (A) 0.1 k/uL (0-0.7); Eosinophils % (A) 2 %; HCT 48.4 % (39.0-53.0); HGB 16.4 gm/dL (13.0-17.5); Lymphocytes # (A) 1.9 k/uL (1.0-4.8); Lymphocytes % (A) 39 %; MCH 31.6 pg (25.0-35.0); MCHC 33.8 g/dL (31.0-37.0); MCV 93.6 fL (80.0-100.0); Mean Platelet Volume 7.8; Monocytes # (A) 0.2 k/uL (0-1.0); Monocytes % (A) 5 %; Neutrophils # (A) 2.5 k/uL (1.3-7.7); Neutrophils % (A) 52 %; Platelet Count 159 k/uL (150-450); RBC 5.17 m/uL (4.30-5.90); RDW 13.1 % (11.5-15.5); WBC 4.9 k/uL (3.8-10.6)
[2018-07-12 19:49] LABS: Glucose,Whole Blood 251 mg/dL (75-99)
[2018-07-12] MEDS ORDERED: INSULIN ASPART 100 UNIT/ML 1 ML 10 ML VIAL SQ STA (19:57)
[2018-07-12 20:00] LABS: ALT 25 U/L (21-72); AST 27 U/L (17-59); Alkaline Phosphatase 138 U/L (38-126); Anion Gap 12 mmol/L; Blood Urea Nitrogen 11 mg/dL (9-20); Calcium 9.1 mg/dL (8.4-10.2); Carbon Dioxide 21 mmol/L (22-30); Chloride 103 mmol/L (98-107); Glucose 306 mg/dL (74-99); Potassium 4.2 mmol/L (3.5-5.1); Sodium 136 mmol/L (137-145); Total Bilirubin 0.7 mg/dL (0.2-1.3); Total Protein 6.7 g/dL (6.3-8.2)
[2018-07-12 20:48] LABS: Glucose,Whole Blood 235 mg/dL (75-99)
[2018-07-12 22:03] LABS: Glucose,Whole Blood 260 mg/dL (75-99)
[2018-07-12 22:33] VITALS: BP 119/78; PULSE 57; RESP 17; TEMP 98.6
== END 2018-07-12 22:33 | disposition home or self-care (01) ==
LOC: EC 17:10
DX: E11.65 Type 2 diabetes mellitus with hyperglycemia (principal); J45.909 Unspecified asthma, uncomplicated; F17.200 Nicotine dependence, unspecified, uncomplicated; Z79.4 Long term (current) use of insulin; Z83.3 Family history of diabetes mellitus
CPT/HCPCS: 36415; 80053; 82009; 85025; 96360; 99284

== ENCOUNTER 2018-10-17 08:57 | Emergency (ER) | payer OTHER ==
[2018-10-17 09:07] VITALS: RESP 18; TEMP 97.8
[2018-10-17] MEDS ORDERED: SODIUM CHLORIDE 0.9% 1,000 ML IV STA ×2 (09:29)
[2018-10-17] MEDS ORDERED: SODIUM CHLORIDE 0.9% 500 ML 500 ML IV STA (09:29)
[2018-10-17] MEDS ORDERED: INSULIN REGULAR 100 UNIT/ML VIAL IV ONE (09:30)
--- NOTE | 2018-10-17 09:31 | ED ---
Recheck HPI - General Chief Complaint: Recheck/Abnormal Lab/Rx Stated Complaint: diabetic Time Seen by Provider: 10/17/18 09:11 Source: patient, RN notes reviewed Mode of arrival: ambulatory Limitations: no limitations - History of Present Illness Initial Comments: This is a 38-year-old male with a history of insulin-dependent diabetes who states he has not had access to his medications for 6 days. He states she's been urinating a lot he is very thirsty he denies any fevers chills nausea vomiting sweats or other symptoms however. No cough or phlegm production. No other modifying factors he states he is from out of town and does not know when he'll be able go back home. MD Complaint: abnormal lab - Related Data Home Medications Medication Instructions Recorded Confirmed Insulin Aspart [NovoLOG See Protocol SQ AC-TID 04/22/16 10/17/18 (formulary)] Cyanocobalamin (Vitamin B-12) 1,000 mcg PO DAILY 04/19/17 10/17/18 [Vitamin B-12] Previous Rx's Medication Instructions Recorded Insulin Glargine,Hum.rec.anlog 40 unit SQ HS #2 pen 07/12/18 [Lantus Solostar] Insulin Aspart [NovoLOG 0 unit SQ ACHS #1 vial 10/17/18 (formulary)] Insulin Glargine [Lantus] 40 unit SQ HS #1 vial 10/17/18 Allergies Allergy/AdvReac Type Severity Reaction Status Date / Time No Known Allergies Allergy Verified 10/17/18 09:29 Review of Systems ROS Statement: Those systems with pertinent positive or pertinent negative responses have been documented in the HPI. ROS Other: All systems not noted in ROS Statement are negative. Past Medical History Past Medical History: Asthma, Diabetes Mellitus, GERD/Reflux Additional Past Medical History / Comment(s): ULCERS, kidney stones History of Any Multi-Drug Resistant Organisms: None Reported Past Surgical History: No Surgical Hx Reported Additional Past Surgical History / Comment(s): TOOTH EXTRACTIONS Past Anesthesia/Blood Transfusion Reactions: No Reported Reaction Past Psychological History: No Psychological Hx Reported Smoking Status: Current every day smoker Past Alcohol Use History: Occasional Past Drug Use History: Marijuana - Past Family History Father Family Medical History: Diabetes Mellitus Additional Family Medical History / Comment(s): GLAUCOMA Mother Family Medical History: Diabetes Mellitus, Seizure Disorder General Exam - General Exam Comments Initial Comments: This is a well-developed well-nourished awake alert oriented 3 male Limitations: no limitations General appearance: alert, in no apparent distress Head exam: Present: atraumatic, normocephalic, normal inspection Eye exam: Present: normal appearance, PERRL, EOMI. Absent: scleral icterus, conjunctival injection, periorbital swelling ENT exam: Present: mucous membranes dry Neck exam: Present: normal inspection. Absent: tenderness, meningismus, lymphadenopathy Respiratory exam: Present: normal lung sounds bilaterally. Absent: respiratory distress, wheezes, rales, rhonchi, stridor Cardiovascular Exam: Present: regular rate, normal rhythm, normal heart sounds. Absent: systolic murmur, diastolic murmur, rubs, gallop, clicks GI/Abdominal exam: Present: soft, normal bowel sounds. Absent: distended, tenderness, guarding, rebound, rigid Extremities exam: Present: normal inspection, full ROM, normal capillary refill. Absent: tenderness, pedal edema, joint swelling, calf tenderness Back exam: Present: normal inspection Neurological exam: Present: alert, oriented X3, CN II-XII intact Psychiatric exam: Present: normal affect, normal mood Skin exam: Present: warm, dry, intact, normal color. Absent: rash Course Vital Signs 10/17/18 10/17/18 09:01 11:16 Temperature 97.8 F Pulse Rate 73 60 Respiratory 18 18 Rate Blood Pressure 117/86 117/71 O2 Sat by Pulse 100 99 Oximetry Medical Decision Making - Medical Decision Making Patient is feeling improved after IV fluids and IV insulin. He will be discharged at work prescriptions were his insulin and needles. He is a follow- up with his doctor return when necessary - Lab Data Result diagrams: 10/17/18 09:15 10/17/18 09:15 Lab Results 10/17/18 10/17/18 10/17/18 Range/Units 09:15 09:15 09:36 WBC 4.3 (3.8-10.6) k/uL RBC 5.20 (4.30-5.90) m/uL Hgb 16.3 (13.0-17.5) gm/dL Hct 47.5 (39.0-53.0) % MCV 91.3 (80.0-100.0) fL MCH 31.3 (25.0-35.0) pg MCHC 34.3 (31.0-37.0) g/dL RDW 12.8 (11.5-15.5) % Plt Count 210 (150-450) k/uL Neutrophils % 39 % Lymphocytes % 50 % Monocytes % 5 % Eosinophils % 2 % Basophils % 0 % Neutrophils # 1.7 (1.3-7.7) k/uL Lymphocytes # 2.2 (1.0-4.8) k/uL Monocytes # 0.2 (0-1.0) k/uL Eosinophils # 0.1 (0-0.7) k/uL Basophils # 0.0 (0-0.2) k/uL Sodium 139 (137-145) mmol/L Potassium 4.8 (3.5-5.1) mmol/L Chloride 104 (98-107) mmol/L Carbon Dioxide 24 (22-30) mmol/L Anion Gap 11 mmol/L BUN 14 (9-20) mg/dL Creatinine 0.80 (0.66-1.25) mg/dL Est GFR (CKD-EPI)AfAm >90 (>60 ml/min/1.73 sqM) Est GFR (CKD-EPI)NonAf >90 (>60 ml/min/1.73 sqM) Glucose 416 H (74-99) mg/dL Calcium 9.6 (8.4-10.2) mg/dL Magnesium 1.7 (1.6-2.3) mg/dL Total Bilirubin 0.6 (0.2-1.3) mg/dL AST 19 (17-59) U/L ALT 22 (21-72) U/L Alkaline Phosphatase 149 H (38-126) U/L Total Protein 7.2 (6.3-8.2) g/dL Albumin 4.2 (3.5-5.0) g/dL Urine Color Colorless Urine Appearance Clear (Clear) Urine pH 5.0 (5.0-8.0) Ur Specific [place] 1.028 (1.001-1.035) Urine Protein Negative (Negative) Urine Glucose (UA) 4+ H (Negative) Urine Ketones 1+ H (Negative) Urine Blood Negative (Negative) Urine Nitrite Negative (Negative) Urine Bilirubin Negative (Negative) Urine Urobilinogen <2.0 (<2.0) mg/dL Ur Leukocyte Esterase Negative (Negative) Acetone, Qual Negative (Negative) - Radiology Data Radiology results: report reviewed (I did review the imaging and report no acute findings.), image reviewed Disposition Clinical Impression: Hyperglycemia due to type 1 diabetes mellitus, Dehydration Disposition: HOME SELF-CARE Condition: Good Instructions: Diabetic Hyperglycemia (ED), Dehydration (ED) Prescriptions: Insulin Aspart [NovoLOG (formulary)] 0 unit SQ ACHS #1 vial Insulin Glargine [Lantus] 40 unit SQ HS #1 vial Is patient prescribed a controlled substance at d/c from ED?: No Referrals: Leon Geronimo MD [Primary Care Provider] - 1-2 days
[2018-10-17 09:41] LABS: Basophils % (A) 0 %; Eosinophils # (A) 0.1 k/uL (0-0.7); Eosinophils % (A) 2 %; HCT 47.5 % (39.0-53.0); HGB 16.3 gm/dL (13.0-17.5); Lymphocytes # (A) 2.2 k/uL (1.0-4.8); Lymphocytes % (A) 50 %; MCH 31.3 pg (25.0-35.0); MCHC 34.3 g/dL (31.0-37.0); MCV 91.3 fL (80.0-100.0); Mean Platelet Volume 6.7; Monocytes # (A) 0.2 k/uL (0-1.0); Monocytes % (A) 5 %; Neutrophils # (A) 1.7 k/uL (1.3-7.7); Neutrophils % (A) 39 %; Platelet Count 210 k/uL (150-450); RDW 12.8 % (11.5-15.5); WBC 4.3 k/uL (3.8-10.6)
[2018-10-17 09:44] LABS: Appearance,Urine Clear (Clear); Bilirubin,Urine Negative (Negative); Blood,Urine Negative (Negative); Color,Urine Colorless; Glucose,Urine (UA) 4+ (Negative); Ketones,Urine 1+ (Negative); Leukocyte Esterase,Urine Negative (Negative); Nitrite,Urine Negative (Negative); Protein,Urine Negative (Negative); Specific Gravity,Urine 1.028 (1.001-1.035); Urobilinogen,Urine <2.0 mg/dL (<2.0)
[2018-10-17 09:53] LABS: ALT 22 U/L (21-72); AST 19 U/L (17-59); Albumin 4.2 g/dL (3.5-5.0); Alkaline Phosphatase 149 U/L (38-126); Anion Gap 11 mmol/L; Blood Urea Nitrogen 14 mg/dL (9-20); Calcium 9.6 mg/dL (8.4-10.2); Carbon Dioxide 24 mmol/L (22-30); Chloride 104 mmol/L (98-107); Glucose 416 mg/dL (74-99); Magnesium 1.7 mg/dL (1.6-2.3); Potassium 4.8 mmol/L (3.5-5.1); Sodium 139 mmol/L (137-145); Total Bilirubin 0.6 mg/dL (0.2-1.3); Total Protein 7.2 g/dL (6.3-8.2)
--- NOTE | 2018-10-17 10:02 | XR ---
EXAMINATION TYPE: XR chest 2V DATE OF EXAM: 10/17/2018 COMPARISON: NONE HISTORY: Cough, chest pain and shortness of breath TECHNIQUE: Frontal and lateral views of the chest are obtained. FINDINGS: There is no focal air space opacity, pleural effusion, or pneumothorax seen. The cardiac silhouette size is within normal limits. The osseous structures are intact. IMPRESSION: No acute cardiopulmonary process.
[2018-10-17 11:17] VITALS: BP 117/71; PULSE 60
[2018-10-17 13:09] LABS: Glucose,Whole Blood 219 mg/dL (75-99)
[2018-10-17 13:09] LABS: Glucose,Whole Blood 204 mg/dL (75-99)
[2018-10-17 13:09] LABS: Glucose,Whole Blood 417 mg/dL (75-99)
[2018-10-17 20:48] LABS: Hemoglobin A1C 13.3 % (4.0-6.0)
== END 2018-10-17 13:32 | disposition home or self-care (01) ==
LOC: EC 08:57
DX: E10.65 Type 1 diabetes mellitus with hyperglycemia (principal); E86.0 Dehydration; F17.200 Nicotine dependence, unspecified, uncomplicated; Z79.4 Long term (current) use of insulin; Z79.899 Other long term (current) drug therapy
CPT/HCPCS: 36415; 71046; 80053; 81003; 82009; 83036; 83735; 85025; 99283

== ENCOUNTER 2018-10-31 01:07 | Emergency (ER) | payer OTHER ==
[2018-10-31 01:14] VITALS: RESP 16; TEMP 97.9
[2018-10-31 02:32] LABS: Appearance,Urine Clear (Clear); Bilirubin,Urine Negative (Negative); Blood,Urine Negative (Negative); Color,Urine Yellow; Glucose,Urine (UA) 4+ (Negative); Ketones,Urine Negative (Negative); Leukocyte Esterase,Urine Negative (Negative); Nitrite,Urine Negative (Negative); PH, Urine 5.5 (5.0-8.0); Protein,Urine Trace (Negative); Specific Gravity,Urine 1.026 (1.001-1.035); Urobilinogen,Urine <2.0 mg/dL (<2.0)
[2018-10-31 02:33] LABS: Basophils % (A) 0 %; Eosinophils # (A) 0.1 k/uL (0-0.7); Eosinophils % (A) 2 %; HCT 51.4 % (39.0-53.0); HGB 17.8 gm/dL (13.0-17.5); Lymphocytes # (A) 1.6 k/uL (1.0-4.8); Lymphocytes % (A) 37 %; MCH 32.1 pg (25.0-35.0); MCHC 34.6 g/dL (31.0-37.0); MCV 92.8 fL (80.0-100.0); Mean Platelet Volume 6.9; Monocytes # (A) 0.3 k/uL (0-1.0); Monocytes % (A) 7 %; Neutrophils # (A) 2.1 k/uL (1.3-7.7); Neutrophils % (A) 49 %; Platelet Count 169 k/uL (150-450); RBC 5.54 m/uL (4.30-5.90); RDW 13.3 % (11.5-15.5); WBC 4.2 k/uL (3.8-10.6)
[2018-10-31 02:38] LABS: ALT 17 U/L (21-72); AST 29 U/L (17-59); Albumin 4.2 g/dL (3.5-5.0); Alkaline Phosphatase 88 U/L (38-126); Anion Gap 8 mmol/L; Blood Urea Nitrogen 11 mg/dL (9-20); Calcium 9.2 mg/dL (8.4-10.2); Carbon Dioxide 27 mmol/L (22-30); Chloride 106 mmol/L (98-107); Glucose 107 mg/dL (74-99); Potassium 3.4 mmol/L (3.5-5.1); Sodium 141 mmol/L (137-145); Total Bilirubin 1.1 mg/dL (0.2-1.3); Total Protein 6.9 g/dL (6.3-8.2)
--- NOTE | 2018-10-31 02:49 | XR ---
EXAMINATION TYPE: XR chest 2V DATE OF EXAM: 10/31/2018 COMPARISON: 10/17/2018 HISTORY: Chest pain and cough TECHNIQUE: Frontal and lateral views of the chest are obtained. FINDINGS: Heart and mediastinum are normal. Lungs are clear. Costophrenic angles are clear. Bony tho rax is intact. There are no hilar masses. IMPRESSION: Normal chest. No change.
[2018-10-31] MEDS ORDERED: AZITHROMYCIN 250 MG TAB PO STA (03:00)
[2018-10-31] MEDS ORDERED: cefTRIAXone 250 MG VIAL IM STA (03:00)
--- NOTE | 2018-10-31 03:03 | ED ---
General Adult HPI - General Chief complaint: Recheck/Abnormal Lab/Rx Stated complaint: diabetic issue Time Seen by Provider: 10/31/18 01:43 Source: patient Mode of arrival: ambulatory Limitations: no limitations - History of Present Illness Initial comments: This patient is a 38-year-old man who presents to be evaluated for what he felt may be hyperglycemia. He states that he had been eating a fair amount of candy today and had 2 sodas. He states following that he was drinking a lot of water and urinating frequently. He also started to feel little bit lightheaded. She denies symptoms of infection. -: hour(s) Consistency: constant Improves with: none Worsens with: none Associated Symptoms: other (Polyuria and polydipsia) Treatments Prior to Arrival: none - Related Data Home Medications Medication Instructions Recorded Confirmed Insulin Aspart [NovoLOG See Protocol SQ AC-TID 04/22/16 10/17/18 (formulary)] Cyanocobalamin (Vitamin B-12) 1,000 mcg PO DAILY 04/19/17 10/17/18 [Vitamin B-12] Previous Rx's Medication Instructions Recorded Insulin Glargine,Hum.rec.anlog 40 unit SQ HS #2 pen 07/12/18 [Lantus Solostar] Insulin Aspart [NovoLOG 0 unit SQ ACHS #1 vial 10/17/18 (formulary)] Insulin Glargine [Lantus] 40 unit SQ HS #1 vial 10/17/18 Allergies Allergy/AdvReac Type Severity Reaction Status Date / Time No Known Allergies Allergy Verified 10/31/18 01:14 Review of Systems ROS Statement: Those systems with pertinent positive or pertinent negative responses have been documented in the HPI. ROS Other: All systems not noted in ROS Statement are negative. Constitutional: Denies: fever, chills, weakness Respiratory: Denies: cough, dyspnea Cardiovascular: Denies: chest pain, palpitations, syncope Endocrine: Reports: polydipsia, polyuria Gastrointestinal: Denies: abdominal pain, nausea, vomiting, diarrhea Genitourinary: Denies: dysuria, hematuria, discharge, testicular pain, testicular mass Musculoskeletal: Denies: back pain Skin: Denies: rash Neurological: Denies: headache, weakness, numbness Past Medical History Past Medical History: Asthma, Diabetes Mellitus, GERD/Reflux Additional Past Medical History / Comment(s): ULCERS, kidney stones History of Any Multi-Drug Resistant Organisms: None Reported Past Surgical History: No Surgical Hx Reported Additional Past Surgical History / Comment(s): TOOTH EXTRACTIONS Past Anesthesia/Blood Transfusion Reactions: No Reported Reaction Past Psychological History: No Psychological Hx Reported Smoking Status: Current every day smoker Past Alcohol Use History: Occasional Past Drug Use History: Marijuana - Past Family History Father Family Medical History: Diabetes Mellitus Additional Family Medical History / Comment(s): GLAUCOMA Mother Family Medical History: Diabetes Mellitus, Seizure Disorder General Exam Limitations: no limitations General appearance: alert, in no apparent distress Head exam: Present: atraumatic, normocephalic Eye exam: Present: normal appearance. Absent: scleral icterus, conjunctival injection ENT exam: Present: normal oropharynx Neck exam: Present: normal inspection, full ROM Respiratory exam: Present: normal lung sounds bilaterally. Absent: respiratory distress, wheezes, rales, rhonchi, stridor Cardiovascular Exam: Present: regular rate, normal rhythm, normal heart sounds. Absent: systolic murmur, diastolic murmur, rubs, gallop GI/Abdominal exam: Present: soft. Absent: distended, tenderness, guarding, rebound, rigid, mass Extremities exam: Present: normal inspection, normal capillary refill. Absent: pedal edema, calf tenderness Back exam: Present: normal inspection. Absent: CVA tenderness (R), CVA tenderness (L) Neurological exam: Present: alert Skin exam: Present: warm, dry, intact, normal color. Absent: rash Course Vital Signs 10/31/18 10/31/18 01:11 03:21 Temperature 97.9 F Pulse Rate 78 58 L Respiratory 16 16 Rate Blood Pressure 105/70 121/78 O2 Sat by Pulse 99 99 Oximetry Medical Decision Making - Medical Decision Making I went on to reevaluate the patient, he stated that he was also concerned about possibility of sexually-transmitted infection. The patient stated that he was concerned that he may have been exposed to an STI. He was denying symptoms including no genital pain. No dysuria or urethral discharge. He had not noted any inguinal nodes. I did send testing for GC and chlamydia, and the patient following discussion of risks and benefits did request empiric antibiotic treatment. - Lab Data Result diagrams: 10/31/18 02:05 10/31/18 02:05 Lab Results 12/10/31/18 10/31/18 Range/Units 01:23 02:05 02:05 WBC 4.2 (3.8-10.6) k/uL RBC 5.54 (4.30-5.90) m/uL Hgb 17.8 H (13.0-17.5) gm/dL Hct 51.4 (39.0-53.0) % MCV 92.8 (80.0-100.0) fL MCH 32.1 (25.0-35.0) pg MCHC 34.6 (31.0-37.0) g/dL RDW 13.3 (11.5-15.5) % Plt Count 169 (150-450) k/uL Neutrophils % 49 % Lymphocytes % 37 % Monocytes % 7 % Eosinophils % 2 % Basophils % 0 % Neutrophils # 2.1 (1.3-7.7) k/uL Lymphocytes # 1.6 (1.0-4.8) k/uL Monocytes # 0.3 (0-1.0) k/uL Eosinophils # 0.1 (0-0.7) k/uL Basophils # 0.0 (0-0.2) k/uL Sodium 141 (137-145) mmol/L Potassium 3.4 L (3.5-5.1) mmol/L Chloride 106 (98-107) mmol/L Carbon Dioxide 27 (22-30) mmol/L Anion Gap 8 mmol/L BUN 11 (9-20) mg/dL Creatinine 0.69 (0.66-1.25) mg/dL Est GFR (CKD-EPI)AfAm >90 (>60 ml/min/1.73 sqM) Est GFR (CKD-EPI)NonAf >90 (>60 ml/min/1.73 sqM) Glucose 107 H (74-99) mg/dL POC Glucose (mg/dL) 119 H (75-99) mg/dL POC Glu Light Bulb Assembler ID Serenity Freed Calcium 9.2 (8.4-10.2) mg/dL Total Bilirubin 1.1 (0.2-1.3) mg/dL AST 29 (17-59) U/L ALT 17 L (21-72) U/L Alkaline Phosphatase 88 (38-126) U/L Total Protein 6.9 (6.3-8.2) g/dL Albumin 4.2 (3.5-5.0) g/dL Urine Color Urine Appearance (Clear) Urine pH (5.0-8.0) Ur Specific [place] (1.001-1.035) Urine Protein (Negative) Urine Glucose (UA) (Negative) Urine Ketones (Negative) Urine Blood (Negative) Urine Nitrite (Negative) Urine Bilirubin (Negative) Urine Urobilinogen (<2.0) mg/dL Ur Leukocyte Esterase (Negative) Acetone, Qual Negative (Negative) Influenza Type A RNA (Not Detectd) Influenza Type B (PCR) (Not Detectd) 10/31/18 10/31/18 Range/Units 02:05 03:19 WBC (3.8-10.6) k/uL RBC (4.30-5.90) m/uL Hgb (13.0-17.5) gm/dL Hct (39.0-53.0) % MCV (80.0-100.0) fL MCH (25.0-35.0) pg MCHC (31.0-37.0) g/dL RDW (11.5-15.5) % Plt Count (150-450) k/uL Neutrophils % % Lymphocytes % % Monocytes % % Eosinophils % % Basophils % % Neutrophils # (1.3-7.7) k/uL Lymphocytes # (1.0-4.8) k/uL Monocytes # (0-1.0) k/uL Eosinophils # (0-0.7) k/uL Basophils # (0-0.2) k/uL Sodium (137-145) mmol/L Potassium (3.5-5.1) mmol/L Chloride (98-107) mmol/L Carbon Dioxide (22-30) mmol/L Anion Gap mmol/L BUN (9-20) mg/dL Creatinine (0.66-1.25) mg/dL Est GFR (CKD-EPI)AfAm (>60 ml/min/1.73 sqM) Est GFR (CKD-EPI)NonAf (>60 ml/min/1.73 sqM) Glucose (74-99) mg/dL POC Glucose (mg/dL) (75-99) mg/dL POC Glu Light Bulb Assembler ID Calcium (8.4-10.2) mg/dL Total Bilirubin (0.2-1.3) mg/dL AST (17-59) U/L ALT (21-72) U/L Alkaline Phosphatase (38-126) U/L Total Protein (6.3-8.2) g/dL Albumin (3.5-5.0) g/dL Urine Color Yellow Urine Appearance Clear (Clear) Urine pH 5.5 (5.0-8.0) Ur Specific [place] 1.026 (1.001-1.035) Urine Protein Trace H (Negative) Urine Glucose (UA) 4+ H (Negative) Urine Ketones Negative (Negative) Urine Blood Negative (Negative) Urine Nitrite Negative (Negative) Urine Bilirubin Negative (Negative) Urine Urobilinogen <2.0 (<2.0) mg/dL Ur Leukocyte Esterase Negative (Negative) Acetone, Qual (Negative) Influenza Type A RNA Not Detected (Not Detectd) Influenza Type B (PCR) Not Detected (Not Detectd) Disposition Clinical Impression: Dehydration, mild Disposition: HOME SELF-CARE Condition: Fair Instructions: Meal Planning with Diabetes Exchanges (DC) Is patient prescribed a controlled substance at d/c from ED?: No Referrals: Leon Geronimo MD [Primary Care Provider] - 1-2 days
[2018-10-31 03:05] LABS: Glucose,Whole Blood 119 mg/dL (75-99)
[2018-10-31 03:22] VITALS: BP 121/78; PULSE 58
[2018-11-02 13:55] LABS: C. trachomatis,PCR Negative (Neg,Equiv); Chlamydia trachomatis Source Urine; N. gonorrhoeae,PCR Negative (Neg,Equiv); Neisseria Source Urine
== END 2018-10-31 03:22 | disposition home or self-care (01) ==
LOC: EC 01:07
DX: E86.0 Dehydration (principal); R42 Dizziness and giddiness; R63.1 Polydipsia; R35.8 Other polyuria; E11.9 Type 2 diabetes mellitus without complications; F17.200 Nicotine dependence, unspecified, uncomplicated; Z79.4 Long term (current) use of insulin; Z79.899 Other long term (current) drug therapy
CPT/HCPCS: 36415; 80053; 82009; 85025; 81003; 87491; 87591; 87502; 71046; 99284; 96372; J0696

== ENCOUNTER 2019-04-19 10:46 | Emergency (ER) | payer OTHER ==
[2019-04-19] MEDS ORDERED: SODIUM CHLORIDE 0.9% 2,000 ML IV STA (11:02)
[2019-04-19 11:26] LABS: Glucose,Whole Blood 391 mg/dL (75-99)
[2019-04-19 11:35] LABS: Appearance,Urine Clear (Clear); Basophils % (A) 0 %; Bilirubin,Urine Negative (Negative); Blood,Urine Negative (Negative); Color,Urine Light Yellow; Eosinophils # (A) 0.1 k/uL (0-0.7); Eosinophils % (A) 3 %; Glucose,Urine (UA) 4+ (Negative); HCT 51.1 % (39.0-53.0); HGB 17.2 gm/dL (13.0-17.5); Ketones,Urine Negative (Negative); Leukocyte Esterase,Urine Negative (Negative); Lymphocytes # (A) 1.2 k/uL (1.0-4.8); Lymphocytes % (A) 31 %; MCH 31.1 pg (25.0-35.0); MCHC 33.7 g/dL (31.0-37.0); MCV 92.5 fL (80.0-100.0); Mean Platelet Volume 7.3; Monocytes # (A) 0.2 k/uL (0-1.0); Monocytes % (A) 6 %; Neutrophils # (A) 2.3 k/uL (1.3-7.7); Neutrophils % (A) 58 %; Nitrite,Urine Negative (Negative); Platelet Count 200 k/uL (150-450); Protein,Urine Negative (Negative); RBC 5.52 m/uL (4.30-5.90); RDW 14.4 % (11.5-15.5); Specific Gravity,Urine 1.032 (1.001-1.035); Urobilinogen,Urine <2.0 mg/dL (<2.0); WBC 3.9 k/uL (3.8-10.6)
[2019-04-19] MEDS ORDERED: INSULIN REGULAR 100 UNIT/ML VIAL IV ONE (11:36)
[2019-04-19 11:46] LABS: ALT 14 U/L (21-72); AST 19 U/L (17-59); Albumin 4.2 g/dL (3.5-5.0); Alkaline Phosphatase 125 U/L (38-126); Anion Gap 9 mmol/L; Blood Urea Nitrogen 14 mg/dL (9-20); Calcium 9.6 mg/dL (8.4-10.2); Carbon Dioxide 24 mmol/L (22-30); Chloride 103 mmol/L (98-107); Glucose 415 mg/dL (74-99); Lipase 52 U/L (23-300); Potassium 4.8 mmol/L (3.5-5.1); Sodium 136 mmol/L (137-145); Total Bilirubin 0.7 mg/dL (0.2-1.3); Total Protein 7.1 g/dL (6.3-8.2)
--- NOTE | 2019-04-19 12:24 | ED ---
Recheck HPI - General Chief Complaint: Recheck/Abnormal Lab/Rx Stated Complaint: abn labs Time Seen by Provider: 04/19/19 10:51 Source: patient, RN notes reviewed Mode of arrival: ambulatory Limitations: no limitations - History of Present Illness Initial Comments: 38-year-old male presents emergency Department chief complaint of hyperglycemia. Patient lab work from his PCP 2 days ago have blood sugar 480. Patient states he has not taken any recent insulin. He states that he gets stressed out does not take his insulin or checking his blood sugar. He states that he does started drinking alcohol and regular basis but states not suicidal or homicidal. No alcohol intake today. Denies any abdominal pain including nausea vomiting diarrhea constipation no chest pain or shortness breath no URI symptoms no recent fevers or chills. - Related Data Home Medications Medication Instructions Recorded Confirmed INSULIN ASPART (NovoLOG) [NovoLOG See Protocol SQ AC-TID 04/22/16 10/17/18 (formulary)] Cyanocobalamin (Vitamin B-12) 1,000 mcg PO DAILY 04/19/17 10/17/18 [Vitamin B-12] Previous Rx's Medication Instructions Recorded Insulin Glargine,Hum.rec.anlog 40 unit SQ HS #2 pen 07/12/18 [Lantus Solostar] INSULIN ASPART (NovoLOG) [NovoLOG 0 unit SQ ACHS #1 vial 10/17/18 (formulary)] Insulin Glargine [Lantus] 40 unit SQ HS #1 vial 10/17/18 Allergies Allergy/AdvReac Type Severity Reaction Status Date / Time No Known Allergies Allergy Verified 04/19/19 10:51 Review of Systems ROS Statement: Those systems with pertinent positive or pertinent negative responses have been documented in the HPI. ROS Other: All systems not noted in ROS Statement are negative. Past Medical History Past Medical History: Asthma, Diabetes Mellitus, GERD/Reflux Additional Past Medical History / Comment(s): ULCERS, kidney stones History of Any Multi-Drug Resistant Organisms: None Reported Past Surgical History: No Surgical Hx Reported Additional Past Surgical History / Comment(s): TOOTH EXTRACTIONS Past Anesthesia/Blood Transfusion Reactions: No Reported Reaction Past Psychological History: No Psychological Hx Reported Smoking Status: Current every day smoker Past Alcohol Use History: Daily Past Drug Use History: Marijuana - Past Family History Father Family Medical History: Diabetes Mellitus Additional Family Medical History / Comment(s): GLAUCOMA Mother Family Medical History: Diabetes Mellitus, Seizure Disorder General Exam Limitations: no limitations General appearance: alert, in no apparent distress Head exam: Present: atraumatic, normocephalic, normal inspection Eye exam: Present: normal appearance, PERRL, EOMI. Absent: scleral icterus, conjunctival injection, periorbital swelling ENT exam: Present: normal exam, normal oropharynx, mucous membranes moist, TM's normal bilaterally Neck exam: Present: normal inspection, full ROM. Absent: tenderness, meningismus, lymphadenopathy Respiratory exam: Present: normal lung sounds bilaterally. Absent: respiratory distress, wheezes, rales, rhonchi, stridor Cardiovascular Exam: Present: regular rate, normal rhythm, normal heart sounds. Absent: systolic murmur, diastolic murmur, rubs, gallop, clicks GI/Abdominal exam: Present: soft, normal bowel sounds. Absent: distended, tenderness, guarding, rebound, rigid Neurological exam: Present: alert, oriented X3, CN II-XII intact Skin exam: Present: warm, dry, intact, normal color. Absent: rash Course Vital Signs 04/19/19 04/19/19 10:48 12:26 Temperature 98.8 F 97.9 F Pulse Rate 65 60 Respiratory 18 16 Rate Blood Pressure 119/72 108/69 O2 Sat by Pulse 99 99 Oximetry Procedures - [place] Protocol (Time Out) Nurse: Della Pichardo Medical Decision Making - Medical Decision Making 38 show male presented for hyperglycemia. Patient's hyperglycemia is related to noncompliance of medications. Patient is improved after IV fluids and insulin. Patient be discharged with discuss close follow-up and strict control his glucose using his insulin inguinal, or. - Lab Data Result diagrams: 04/19/19 11:19 04/19/19 11:19 Lab Results 04/19/19 04/19/19 04/19/19 Range/Units 11:19 11:19 11:19 WBC 3.9 (3.8-10.6) k/uL RBC 5.52 (4.30-5.90) m/uL Hgb 17.2 (13.0-17.5) gm/dL Hct 51.1 (39.0-53.0) % MCV 92.5 (80.0-100.0) fL MCH 31.1 (25.0-35.0) pg MCHC 33.7 (31.0-37.0) g/dL RDW 14.4 (11.5-15.5) % Plt Count 200 (150-450) k/uL Neutrophils % 58 % Lymphocytes % 31 % Monocytes % 6 % Eosinophils % 3 % Basophils % 0 % Neutrophils # 2.3 (1.3-7.7) k/uL Lymphocytes # 1.2 (1.0-4.8) k/uL Monocytes # 0.2 (0-1.0) k/uL Eosinophils # 0.1 (0-0.7) k/uL Basophils # 0.0 (0-0.2) k/uL Sodium 136 L (137-145) mmol/L Potassium 4.8 (3.5-5.1) mmol/L Chloride 103 (98-107) mmol/L Carbon Dioxide 24 (22-30) mmol/L Anion Gap 9 mmol/L BUN 14 (9-20) mg/dL Creatinine 0.71 (0.66-1.25) mg/dL Est GFR (CKD-EPI)AfAm >90 (>60 ml/min/1.73 sqM) Est GFR (CKD-EPI)NonAf >90 (>60 ml/min/1.73 sqM) Glucose 415 H (74-99) mg/dL POC Glucose (mg/dL) (75-99) mg/dL POC Glu Blueprint Assembler ID Plasma Lactic Acid [place] 2.2 H* (0.7-2.0) mmol/L Calcium 9.6 (8.4-10.2) mg/dL Total Bilirubin 0.7 (0.2-1.3) mg/dL AST 19 (17-59) U/L ALT 14 L (21-72) U/L Alkaline Phosphatase 125 (38-126) U/L Total Protein 7.1 (6.3-8.2) g/dL Albumin 4.2 (3.5-5.0) g/dL Lipase 52 (23-300) U/L Urine Color Urine Appearance (Clear) Urine pH (5.0-8.0) Ur Specific [place] (1.001-1.035) Urine Protein (Negative) Urine Glucose (UA) (Negative) Urine Ketones (Negative) Urine Blood (Negative) Urine Nitrite (Negative) Urine Bilirubin (Negative) Urine Urobilinogen (<2.0) mg/dL Ur Leukocyte Esterase (Negative) Acetone, Qual Negative (Negative) 04/19/19 04/19/19 Range/Units 11:19 11:21 WBC (3.8-10.6) k/uL RBC (4.30-5.90) m/uL Hgb (13.0-17.5) gm/dL Hct (39.0-53.0) % MCV (80.0-100.0) fL MCH (25.0-35.0) pg MCHC (31.0-37.0) g/dL RDW (11.5-15.5) % Plt Count (150-450) k/uL Neutrophils % % Lymphocytes % % Monocytes % % Eosinophils % % Basophils % % Neutrophils # (1.3-7.7) k/uL Lymphocytes # (1.0-4.8) k/uL Monocytes # (0-1.0) k/uL Eosinophils # (0-0.7) k/uL Basophils # (0-0.2) k/uL Sodium (137-145) mmol/L Potassium (3.5-5.1) mmol/L Chloride (98-107) mmol/L Carbon Dioxide (22-30) mmol/L Anion Gap mmol/L BUN (9-20) mg/dL Creatinine (0.66-1.25) mg/dL Est GFR (CKD-EPI)AfAm (>60 ml/min/1.73 sqM) Est GFR (CKD-EPI)NonAf (>60 ml/min/1.73 sqM) Glucose (74-99) mg/dL POC Glucose (mg/dL) 391 H (75-99) mg/dL POC Glu Blueprint Assembler ID Juan Pablo Foy Plasma Lactic Acid [place] (0.7-2.0) mmol/L Calcium (8.4-10.2) mg/dL Total Bilirubin (0.2-1.3) mg/dL AST (17-59) U/L ALT (21-72) U/L Alkaline Phosphatase (38-126) U/L Total Protein (6.3-8.2) g/dL Albumin (3.5-5.0) g/dL Lipase (23-300) U/L Urine Color Light Yellow Urine Appearance Clear (Clear) Urine pH 6.0 (5.0-8.0) Ur Specific [place] 1.032 (1.001-1.035) Urine Protein Negative (Negative) Urine Glucose (UA) 4+ H (Negative) Urine Ketones Negative (Negative) Urine Blood Negative (Negative) Urine Nitrite Negative (Negative) Urine Bilirubin Negative (Negative) Urine Urobilinogen <2.0 (<2.0) mg/dL Ur Leukocyte Esterase Negative (Negative) Acetone, Qual (Negative) Disposition Clinical Impression: Uncontrolled diabetes mellitus Disposition: HOME SELF-CARE Condition: Stable Instructions (If sedation given, give patient instructions): Diabetic Hyperglycemia (ED) Additional Instructions: Please return to the Emergency Department if symptoms worsen or any other concerns. Is patient prescribed a controlled substance at d/c from ED?: No Referrals: [facility] [Primary Care Provider] - 1-2 days Time of Disposition: 12:37
[2019-04-19 12:28] VITALS: BP 108/69; PULSE 60; RESP 16; TEMP 97.9
[2019-04-19 12:37] LABS: Glucose,Whole Blood 169 mg/dL (75-99)
== END 2019-04-19 13:00 | disposition home or self-care (01) ==
LOC: EC 10:46
DX: E11.65 Type 2 diabetes mellitus with hyperglycemia (principal); Z91.14 Patient's other noncompliance with medication regimen; F17.200 Nicotine dependence, unspecified, uncomplicated; Z79.4 Long term (current) use of insulin; Z83.3 Family history of diabetes mellitus
CPT/HCPCS: 36415; 80053; 81003; 82009; 83605; 83690; 85025; 96360; 99284

== ENCOUNTER 2020-03-14 20:48 | Emergency (ER) | payer OTHER ==
[2020-03-14 20:55] VITALS: TEMP 98.2
[2020-03-14 20:56] LABS: Glucose,Whole Blood >600 mg/dL (75-99)
[2020-03-14] MEDS ORDERED: SODIUM CHLORIDE 0.9% 2,000 ML IV ONE (21:04)
[2020-03-14] MEDS ORDERED: INSULIN REGULAR BOLUS (FROM DRIP BAG) IV ONE (21:05)
--- NOTE | 2020-03-14 21:14 | ED ---
General Adult HPI - General Chief complaint: Recheck/Abnormal Lab/Rx Stated complaint: High Blood Sugar Time Seen by Provider: 03/14/20 20:50 Source: patient, RN notes reviewed, old records reviewed Mode of arrival: ambulatory Limitations: no limitations - History of Present Illness Initial comments: This is a 39-year-old male with past medical history significant for type 1 diabetes. Patient states she's been out of his also for about a week. Patient states she's been drinking a lot more and urinating a lot more. Patient states she went to see the [facility] clinic today and they sent a prescription in for some reason he could not get his prescription filled. states that he should really get it filled tomorrow. Patient states that he got a call a few minutes ago that his blood sugar was over 700 according to [facility] and they told to come the emergency department. Patient denies any shortness of breath or difficulty breathing. Patient states he is very tired. Patient denies any chest pain or palpitations. Patient denies being lightheaded or dizzy. - Related Data Home Medications Medication Instructions Recorded Confirmed INSULIN ASPART (NovoLOG) [NovoLOG See Protocol SQ AC-TID 04/22/16 10/17/18 (formulary)] Cyanocobalamin (Vitamin B-12) 1,000 mcg PO DAILY 04/19/17 10/17/18 [Vitamin B-12] Previous Rx's Medication Instructions Recorded Insulin Glargine,Hum.rec.anlog 40 unit SQ HS #2 pen 07/12/18 [Lantus Solostar] INSULIN ASPART (NovoLOG) [NovoLOG 0 unit SQ ACHS #1 vial 10/17/18 (formulary)] Insulin Glargine [Lantus] 40 unit SQ HS #1 vial 10/17/18 Allergies Allergy/AdvReac Type Severity Reaction Status Date / Time No Known Allergies Allergy Verified 03/14/20 20:55 Review of Systems ROS Statement: Those systems with pertinent positive or pertinent negative responses have been documented in the HPI. ROS Other: All systems not noted in ROS Statement are negative. Past Medical History Past Medical History: Asthma, Diabetes Mellitus, GERD/Reflux Additional Past Medical History / Comment(s): ULCERS, kidney stones History of Any Multi-Drug Resistant Organisms: None Reported Past Surgical History: No Surgical Hx Reported Additional Past Surgical History / Comment(s): TOOTH EXTRACTIONS Past Anesthesia/Blood Transfusion Reactions: No Reported Reaction Past Psychological History: No Psychological Hx Reported Smoking Status: Current every day smoker Past Alcohol Use History: Daily Past Drug Use History: Marijuana - Past Family History Father Family Medical History: Diabetes Mellitus Additional Family Medical History / Comment(s): GLAUCOMA Mother Family Medical History: Diabetes Mellitus, Seizure Disorder General Exam - General Exam Comments Initial Comments: GENERAL: Patient is well-developed and well-nourished. Patient is nontoxic and well- hydrated and is in no acute distress. ENT: Neck is soft and supple. No significant lymphadenopathy is noted. Oropharynx is clear. Moist mucous membranes. Neck has full range of motion without eliciting any pain. EYES: The sclera were anicteric and conjunctiva were pink and moist. Extraocular movements were intact and pupils were equal round and reactive to light. Eyelids were unremarkable. PULMONARY: Unlabored respirations. Good breath sounds bilaterally. No audible rales rhonchi or wheezing was noted. CARDIOVASCULAR: There is a regular rate and rhythm without any murmurs gallops or rubs. ABDOMEN: Soft and nontender with normal bowel sounds. SKIN: Skin is clear with no lesions or rashes and otherwise unremarkable. NEUROLOGIC: Patient is alert and oriented x3. Cranial nerves II through XII are grossly intact. Motor and sensory are also intact. Normal speech, volume and content. Symmetrical smile. MUSCULOSKELETAL: Normal extremities with adequate strength and full range of motion. No lower extremity swelling or edema. No calf tenderness. LYMPHATICS: No significant lymphadenopathy is noted PSYCHIATRIC: Normal psychiatric evaluation. Limitations: no limitations Course Vital Signs 03/14/20 20:49 Temperature 98.2 F Pulse Rate 68 Respiratory 18 Rate Blood Pressure 114/68 O2 Sat by Pulse 100 Oximetry Medical Decision Making - Medical Decision Making EKG shows sinus bradycardia 52 bpm FL interval is 144 QRS is 98 QTC intervals 4:30 QTC is 399. Patient's EKG shows no ST segment elevation or depression. Patient was given a bolus of insulin 2 L of fluid and placed on a drip. - Lab Data Result diagrams: 03/14/20 21:15 03/14/20 21:15 Lab Results 03/14/20 03/14/20 03/14/20 Range/Units 20:54 21:15 21:15 WBC 4.1 (3.8-10.6) k/uL RBC 5.51 (4.30-5.90) m/uL Hgb 17.7 H (13.0-17.5) gm/dL Hct 50.9 (39.0-53.0) % MCV 92.4 (80.0-100.0) fL MCH 32.2 (25.0-35.0) pg MCHC 34.8 (31.0-37.0) g/dL RDW 12.8 (11.5-15.5) % Plt Count 188 (150-450) k/uL Neutrophils % 54 % Lymphocytes % 34 % Monocytes % 6 % Eosinophils % 3 % Basophils % 1 % Neutrophils # 2.2 (1.3-7.7) k/uL Lymphocytes # 1.4 (1.0-4.8) k/uL Monocytes # 0.2 (0-1.0) k/uL Eosinophils # 0.1 (0-0.7) k/uL Basophils # 0.0 (0-0.2) k/uL Sodium 130 L (137-145) mmol/L Potassium 4.4 (3.5-5.1) mmol/L Chloride 94 L (98-107) mmol/L Carbon Dioxide 26 (22-30) mmol/L Anion Gap 10 mmol/L BUN 13 (9-20) mg/dL Creatinine 0.74 (0.66-1.25) mg/dL Est GFR (CKD-EPI)AfAm >90 (>60 ml/min/1.73 sqM) Est GFR (CKD-EPI)NonAf >90 (>60 ml/min/1.73 sqM) Glucose 612 H* (74-99) mg/dL POC Glucose (mg/dL) >600 H (75-99) mg/dL POC Glu Stunt Person ID Nilda Lopez Calcium 9.5 (8.4-10.2) mg/dL Total Bilirubin 0.9 (0.2-1.3) mg/dL AST 16 L (17-59) U/L ALT 16 (4-49) U/L Alkaline Phosphatase 164 H (38-126) U/L Total Protein 7.5 (6.3-8.2) g/dL Albumin 4.5 (3.5-5.0) g/dL Acetone, Qual Negative (Negative) 03/14/20 Range/Units 22:07 WBC (3.8-10.6) k/uL RBC (4.30-5.90) m/uL Hgb (13.0-17.5) gm/dL Hct (39.0-53.0) % MCV (80.0-100.0) fL MCH (25.0-35.0) pg MCHC (31.0-37.0) g/dL RDW (11.5-15.5) % Plt Count (150-450) k/uL Neutrophils % % Lymphocytes % % Monocytes % % Eosinophils % % Basophils % % Neutrophils # (1.3-7.7) k/uL Lymphocytes # (1.0-4.8) k/uL Monocytes # (0-1.0) k/uL Eosinophils # (0-0.7) k/uL Basophils # (0-0.2) k/uL Sodium (137-145) mmol/L Potassium (3.5-5.1) mmol/L Chloride (98-107) mmol/L Carbon Dioxide (22-30) mmol/L Anion Gap mmol/L BUN (9-20) mg/dL Creatinine (0.66-1.25) mg/dL Est GFR (CKD-EPI)AfAm (>60 ml/min/1.73 sqM) Est GFR (CKD-EPI)NonAf (>60 ml/min/1.73 sqM) Glucose (74-99) mg/dL POC Glucose (mg/dL) 454 H (75-99) mg/dL POC Glu Stunt Person ID Saeid Taylor, A Calcium (8.4-10.2) mg/dL Total Bilirubin (0.2-1.3) mg/dL AST (17-59) U/L ALT (4-49) U/L Alkaline Phosphatase (38-126) U/L Total Protein (6.3-8.2) g/dL Albumin (3.5-5.0) g/dL Acetone, Qual (Negative) Disposition Clinical Impression: Hyperglycemia Disposition: HOME SELF-CARE Condition: Good Instructions (If sedation given, give patient instructions): Diabetic Hyperglycemia (ED) Additional Instructions: Patient is to parts picker his insulin at the pharmacy tomorrow. Is patient prescribed a controlled substance at d/c from ED?: No Referrals: [facility] [Primary Care Provider] - 1-2 days Time of Disposition: 22:48
[2020-03-14] MEDS ORDERED: INSULIN REGULAR 100 UNIT in SODIUM CHLORIDE 0.9% 100 ML IV SCH (21:15)
[2020-03-14 21:39] LABS: Basophils % (A) 1 %; Eosinophils # (A) 0.1 k/uL (0-0.7); Eosinophils % (A) 3 %; HCT 50.9 % (39.0-53.0); HGB 17.7 gm/dL (13.0-17.5); Lymphocytes # (A) 1.4 k/uL (1.0-4.8); Lymphocytes % (A) 34 %; MCH 32.2 pg (25.0-35.0); MCHC 34.8 g/dL (31.0-37.0); MCV 92.4 fL (80.0-100.0); Mean Platelet Volume 7.5; Monocytes # (A) 0.2 k/uL (0-1.0); Monocytes % (A) 6 %; Neutrophils # (A) 2.2 k/uL (1.3-7.7); Neutrophils % (A) 54 %; Platelet Count 188 k/uL (150-450); RBC 5.51 m/uL (4.30-5.90); RDW 12.8 % (11.5-15.5); WBC 4.1 k/uL (3.8-10.6)
[2020-03-14 21:49] LABS: ALT 16 U/L (4-49); AST 16 U/L (17-59); African American GFR (CKD) >90 (>60 ml/min/1.73 sqM); Albumin 4.5 g/dL (3.5-5.0); Alkaline Phosphatase 164 U/L (38-126); Anion Gap 10 mmol/L; Blood Urea Nitrogen 13 mg/dL (9-20); Calcium 9.5 mg/dL (8.4-10.2); Carbon Dioxide 26 mmol/L (22-30); Chloride 94 mmol/L (98-107); Non-African American GFR(CKD) >90 (>60 ml/min/1.73 sqM); Potassium 4.4 mmol/L (3.5-5.1); Sodium 130 mmol/L (137-145); Total Bilirubin 0.9 mg/dL (0.2-1.3); Total Protein 7.5 g/dL (6.3-8.2)
[2020-03-14 21:58] LABS: Glucose 612 mg/dL (74-99)
[2020-03-14 22:09] LABS: Glucose,Whole Blood 454 mg/dL (75-99)
[2020-03-14] MEDS ORDERED: INSULIN ASPART (NovoLOG) 100 UNIT/ML VIAL SQ ONE (23:00)
[2020-03-14 23:02] LABS: Glucose,Whole Blood 234 mg/dL (75-99)
[2020-03-14 23:22] VITALS: BP 116/78; PULSE 74; RESP 20
== END 2020-03-14 21:30 | disposition home or self-care (01) ==
LOC: EC 20:48
DX: E10.65 Type 1 diabetes mellitus with hyperglycemia (principal); R00.1 Bradycardia, unspecified; F17.200 Nicotine dependence, unspecified, uncomplicated; Z79.4 Long term (current) use of insulin; Z87.442 Personal history of urinary calculi; Z83.3 Family history of diabetes mellitus
CPT/HCPCS: 36415; 80053; 82009; 85025; 93005; 96360; 99285

== ENCOUNTER 2020-04-07 01:51 | Emergency (ER) | payer OTHER ==
[2020-04-07 02:04] VITALS: RESP 20
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
[2020-04-07] MEDS ORDERED: HYDROmorphone 0.5 MG/0.5 ML SYRINGE IM STA (02:50)
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
[2020-04-07 03:41] VITALS: BP 123/91; PULSE 101; TEMP 98
[2020-04-07] MEDS ORDERED: ONDANSETRON ODT 4 MG TAB PO STA (03:52)
== END 2020-04-07 03:47 | disposition home or self-care (01) ==
LOC: EC 01:51
DX: S01.01XA Laceration without foreign body of scalp, initial encounter (principal); H05.221 Edema of right orbit; R00.0 Tachycardia, unspecified; E11.9 Type 2 diabetes mellitus without complications; F17.200 Nicotine dependence, unspecified, uncomplicated; Z79.4 Long term (current) use of insulin; Y04.0XXA Assault by unarmed brawl or fight, initial encounter; Y92.009 Unspecified place in unspecified non-institutional (private) residence as the place of occurrence of the external cause
CPT/HCPCS: 99284; 96372; 72125; 70486; 70450; J1170

== ENCOUNTER 2020-05-19 01:04 | Emergency (ER) | payer OTHER ==
[2020-05-19 01:11] VITALS: BP 117/77; PULSE 104; RESP 18; TEMP 97.6
[2020-05-19] MEDS ORDERED: IBUPROFEN 600 MG STARTER PACK 4 TAB BTL PO STA (01:22)
[2020-05-19] MEDS ORDERED: SULFAMETH-TMP DS STARTER PACK 2 TAB BTL PO STA (01:22)
--- NOTE | 2020-05-19 01:24 | ED ---
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 Patient states that 2 days ago the area looked like an ingrown hair so his did squeeze it and try to drain it. States that over the next 2 days the area became larger, more red, and hard to touch. Denies any itching to the area. States that they were able to express a tiny amount of clear fluid out of it. He denies any fever or chills. States he did have a similar lesion to the left groin. This one appears to be healing. Patient does admit to having diabetes, states his blood sugars are poorly controlled but he is currently on medication and walking on his diet. Patient denies any recent rash, cough, shortness of breath, chest pain, abdominal pain, nausea, vomiting, diarrhea, constipation, back pain, numbness, tingling, dizziness, weakness, hematuria, dysuria, urinary urgency, urinary frequency, headache, visual changes, or any other complaints. - Related Data Home Medications Medication Instructions Recorded Confirmed INSULIN ASPART (NovoLOG) [NovoLOG See Protocol SQ AC-TID 04/22/16 10/17/18 (formulary)] Cyanocobalamin (Vitamin B-12) 1,000 mcg PO DAILY 04/19/17 10/17/18 [Vitamin B-12] Previous Rx's Medication Instructions Recorded Insulin Glargine,Hum.rec.anlog 40 unit SQ HS #2 pen 07/12/18 [Lantus Solostar] INSULIN ASPART (NovoLOG) [NovoLOG 0 unit SQ ACHS #1 vial 10/17/18 (formulary)] Insulin Glargine [Lantus] 40 unit SQ HS #1 vial 10/17/18 Ibuprofen [Motrin] 600 mg PO Q8HR PRN #30 tab 05/19/20 Sulfamethoxazole/Trimethoprim 2 each PO BID #40 tablet 05/19/20 [Bactrim DS 800-160 mg] Allergies Allergy/AdvReac Type Severity Reaction Status Date / Time No Known Allergies Allergy Verified 05/19/20 01:11 Review of Systems ROS Statement: Those systems with pertinent positive or pertinent negative responses have been documented in the HPI. ROS Other: All systems not noted in ROS Statement are negative. Past Medical History Past Medical History: Asthma, Diabetes Mellitus, GERD/Reflux Additional Past Medical History / Comment(s): ULCERS, kidney stones History of Any Multi-Drug Resistant Organisms: None Reported Past Surgical History: No Surgical Hx Reported Additional Past Surgical History / Comment(s): TOOTH EXTRACTIONS Past Anesthesia/Blood Transfusion Reactions: No Reported Reaction Past Psychological History: No Psychological Hx Reported Smoking Status: Current every day smoker Past Alcohol Use History: Daily Past Drug Use History: Marijuana - Past Family History Father Family Medical History: Diabetes Mellitus Additional Family Medical History / Comment(s): GLAUCOMA Mother Family Medical History: Diabetes Mellitus, Seizure Disorder General Exam Limitations: no limitations General appearance: alert, in no apparent distress, other (This is a well- developed, well-nourished adult male patient in no acute distress. Vital signs upon presentation are temperature 97.6F, pulse 104, respirations 18, blood pressure 117/77, pulse ox 99% on room air.) Respiratory exam: Present: normal lung sounds bilaterally. Absent: respiratory distress, wheezes, rales, rhonchi, stridor Cardiovascular Exam: Present: regular rate, normal rhythm, normal heart sounds. Absent: systolic murmur, diastolic murmur, rubs, gallop, clicks Extremities exam: Present: full ROM, normal capillary refill, other (There is abscess noted to the right distal thigh just above the knee, there is an area of approximately 4 cm of erythema, induration measuring about 2 x 2 centimeters. No drainage at this time. No fluctuance. Skin is otherwise warm and dry, cap refill less than 3 seconds. Pedal and posttibial pulses are 2+ and equal bilaterally.). Absent: tenderness, pedal edema, joint swelling, calf tenderness Neurological exam: Present: alert, oriented X3, CN II-XII intact Psychiatric exam: Present: normal affect, normal mood Skin exam: Present: warm, dry, intact, normal color. Absent: rash Course Vital Signs 05/19/20 01:07 Temperature 97.6 F Pulse Rate 104 H Respiratory 18 Rate Blood Pressure 117/77 O2 Sat by Pulse 99 Oximetry Medical Decision Making - Medical Decision Making 39-year-old male patient with past medical history significant for diabetes presents to the emergency department today for evaluation of an abscess to the right thigh. Physical examination did reveal circular area measuring 3 x 3 cm of erythema, induration. Area is hot to touch. No fluctuance so we were unable to drain. He'll be started on Bactrim instructed to apply warm compresses. He is instructed to follow-up with his primary care physician for recheck in 1-2 days. Return parameters were discussed in detail. He verbalizes understanding and agrees with this plan. Disposition Clinical Impression: Abscess of right thigh Disposition: HOME SELF-CARE Condition: Good Instructions (If sedation given, give patient instructions): Abscess (ED) Additional Instructions: Apply warm compresses over the area for 20 minutes at a time at least 4-5 times daily. Take medications as directed, complete antibiotic prescription and full even if you are feeling better. Follow-up with your primary care physician for recheck of the area in 1-2 days. Return to the emergency department immediately for any new, worsening, or concerning symptoms. Prescriptions: Sulfamethoxazole/Trimethoprim [Bactrim DS 800-160 mg] 2 each PO BID #40 tablet Ibuprofen [Motrin] 600 mg PO Q8HR PRN #30 tab PRN Reason: Pain Is patient prescribed a controlled substance at d/c from ED?: No Referrals: [facility] [Primary Care Provider] - 1-2 days Time of Disposition: 01:24
== END 2020-05-19 01:33 | disposition home or self-care (01) ==
LOC: EC 01:04
DX: L02.415 Cutaneous abscess of right lower limb (principal); E11.65 Type 2 diabetes mellitus with hyperglycemia; F17.200 Nicotine dependence, unspecified, uncomplicated; Z79.4 Long term (current) use of insulin; W57.XXXA Bitten or stung by nonvenomous insect and other nonvenomous arthropods, initial encounter
CPT/HCPCS: 99283

== ENCOUNTER 2020-07-01 12:19 | Emergency (ER) | payer OTHER ==
[2020-07-01 12:34] VITALS: RESP 18
[2020-07-01] MEDS ORDERED: SODIUM CHLORIDE 0.9% 1,000 ML IV STA ×2 (12:54→14:30)
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
[2020-07-01 13:51] LABS: Basophils % (A) 1 %; Eosinophils # (A) 0.1 k/uL (0-0.7); Eosinophils % (A) 3 %; HCT 50.2 % (39.0-53.0); HGB 17.1 gm/dL (13.0-17.5); Lymphocytes % (A) 28 %; MCH 31.4 pg (25.0-35.0); MCHC 34.1 g/dL (31.0-37.0); MCV 92.1 fL (80.0-100.0); Mean Platelet Volume 7.4; Monocytes # (A) 0.3 k/uL (0-1.0); Monocytes % (A) 7 %; Neutrophils # (A) 2.2 k/uL (1.3-7.7); Neutrophils % (A) 60 %; Platelet Count 160 k/uL (150-450); RBC 5.45 m/uL (4.30-5.90); RDW 12.6 % (11.5-15.5); WBC 3.7 k/uL (3.8-10.6)
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
[2020-07-01 13:55] LABS: Appearance,Urine Clear (Clear); Bilirubin,Urine Negative (Negative); Blood,Urine Negative (Negative); Color,Urine Light Yellow; Glucose,Urine (UA) 4+ (Negative); Ketones,Urine Negative (Negative); Leukocyte Esterase,Urine Negative (Negative); Nitrite,Urine Negative (Negative); PH, Urine 6.5 (5.0-8.0); Protein,Urine Negative (Negative); Specific Gravity,Urine 1.033 (1.001-1.035); Urobilinogen,Urine <2.0 mg/dL (<2.0)
[2020-07-01 14:00] LABS: ALT 16 U/L (4-49); AST 35 U/L (17-59); African American GFR (CKD) >90 (>60 ml/min/1.73 sqM); Albumin 4.3 g/dL (3.5-5.0); Alkaline Phosphatase 141 U/L (38-126); Amylase 58 U/L (30-110); Anion Gap 6 mmol/L; Blood Urea Nitrogen 10 mg/dL (9-20); Carbon Dioxide 25 mmol/L (22-30); Chloride 102 mmol/L (98-107); Glucose 405 mg/dL (74-99); Non-African American GFR(CKD) >90 (>60 ml/min/1.73 sqM); Sodium 133 mmol/L (137-145); Total Bilirubin 1.3 mg/dL (0.2-1.3); Total Protein 7.3 g/dL (6.3-8.2)
[2020-07-01 14:19] LABS: Potassium 5.7 mmol/L (3.5-5.1)
[2020-07-01] MEDS ORDERED: INSULIN REGULAR 100 UNIT/ML VIAL IV ONE (14:25)
[2020-07-01] MEDS ORDERED: IBUPROFEN 400 MG TAB PO STA (15:00)
[2020-07-01 15:07] LABS: Glucose,Whole Blood 255 mg/dL (75-99)
[2020-07-01 15:49] VITALS: BP 120/77; PULSE 56; TEMP 97.5
== END 2020-07-01 15:47 | disposition home or self-care (01) ==
LOC: EC 12:19
DX: E10.65 Type 1 diabetes mellitus with hyperglycemia (principal); M25.561 Pain in right knee; F17.200 Nicotine dependence, unspecified, uncomplicated; Z79.4 Long term (current) use of insulin; Z87.442 Personal history of urinary calculi; Z91.81 History of falling; Z20.828 Contact with and (suspected) exposure to other viral communicable diseases
CPT/HCPCS: 36415; 80053; 82150; 82009; 83690; 85025; 81003; 73562; 99284; 96374; 96361 ×2; U0003

== ENCOUNTER 2021-11-05 05:54 | Emergency (ER) | payer OTHER ==
[2021-11-05 06:06] VITALS: RESP 18
--- NOTE | 2021-11-05 07:06 | ED ---
URI HPI - General Chief Complaint: Upper Respiratory Infection Stated Complaint: Sore Throat Time Seen by Provider: 11/05/21 06:08 Source: patient, RN notes reviewed Mode of arrival: ambulatory Limitations: no limitations - History of Present Illness Initial Comments: 41-year-old male presents emergency from chief complaint of COVID-19. Patient states he tested positive. Patient states symptoms started 2 days ago. He does have history of asthma, diabetes. Patient is on inhaled steroids, albuterol, insulin. Patient states that he had a recent friend that passively from COVID- 19. Patient states he has mild cough congestion no significant shortness breath no chest pain. No GI symptoms. - Related Data Home Medications Medication Instructions Recorded Confirmed Insulin Glargine,Hum.rec.anlog See Protocol SQ HS 07/01/20 11/05/21 [Basaglar Kwikpen U-100] Insulin Lispro [Admelog] See Protocol SQ AC-TID 07/01/20 11/05/21 Budesonide [Pulmicort Flexhaler] 2 puff INHALATION BID 11/05/21 11/05/21 Allergies Allergy/AdvReac Type Severity Reaction Status Date / Time No Known Allergies Allergy Verified 11/05/21 06:05 Review of Systems ROS Statement: Those systems with pertinent positive or pertinent negative responses have been documented in the HPI. ROS Other: All systems not noted in ROS Statement are negative. Past Medical History Past Medical History: Asthma, Diabetes Mellitus, GERD/Reflux Additional Past Medical History / Comment(s): ULCERS, kidney stones History of Any Multi-Drug Resistant Organisms: None Reported Past Surgical History: No Surgical Hx Reported Additional Past Surgical History / Comment(s): TOOTH EXTRACTIONS Past Anesthesia/Blood Transfusion Reactions: No Reported Reaction Past Psychological History: No Psychological Hx Reported Smoking Status: Current every day smoker Past Alcohol Use History: Occasional Past Drug Use History: Marijuana - Past Family History Father Family Medical History: Diabetes Mellitus Additional Family Medical History / Comment(s): GLAUCOMA Mother Family Medical History: Diabetes Mellitus, Seizure Disorder General Exam Limitations: no limitations General appearance: alert, in no apparent distress Head exam: Present: atraumatic, normocephalic, normal inspection Eye exam: Present: normal appearance, PERRL, EOMI. Absent: scleral icterus, co njunctival injection, periorbital swelling ENT exam: Present: normal exam, mucous membranes moist Neck exam: Present: normal inspection, full ROM. Absent: tenderness, meningismus, lymphadenopathy Respiratory exam: Present: normal lung sounds bilaterally. Absent: respiratory distress, wheezes, rales, rhonchi, stridor Cardiovascular Exam: Present: regular rate, normal rhythm, normal heart sounds. Absent: systolic murmur, diastolic murmur, rubs, gallop, clicks GI/Abdominal exam: Present: soft, normal bowel sounds. Absent: distended, tenderness, guarding, rebound, rigid Course Vital Signs 11/05/21 11/05/21 06:02 06:16 Temperature 99.1 F Pulse Rate 97 91 Respiratory 18 18 Rate Blood Pressure 133/92 141/89 O2 Sat by Pulse 99 99 Oximetry Medical Decision Making - Medical Decision Making Patient will receive monoclonal antibodies and will be discharged in stable condition return parameters were discussed. - Lab Data Lab Results 11/05/21 Range/Units 06:21 Coronavirus (PCR) Detected A (Not Detectd) Disposition Clinical Impression: COVID-19 Disposition: HOME SELF-CARE Condition: Stable Instructions (If sedation given, give patient instructions): Coronavirus Disease 2019 (COVID-19) Additional Instructions: Please return to the Emergency Department if symptoms worsen or any other concerns. Is patient prescribed a controlled substance at d/c from ED?: No Referrals: [facility] [Primary Care Provider] - 1-2 days Time of Disposition: 07:06
[2021-11-05] MEDS ORDERED: CASIRIVIMAB (REGN10933) (EUA) 600 MG, IMDEVIMAB (REGN10987) (EUA) 600 MG in SODIUM CHLO... IVPB ONE (07:30)
[2021-11-05 07:36] VITALS: TEMP 98.5
[2021-11-05] MEDS ORDERED: SODIUM CHLORIDE 0.9% 50 ML IVPB ONE (08:00)
[2021-11-05 08:42] VITALS: BP 132/86; PULSE 56
== END 2021-11-05 09:10 | disposition home or self-care (01) ==
LOC: EC 05:54
DX: U07.1 COVID-19 (principal); J45.909 Unspecified asthma, uncomplicated; E11.9 Type 2 diabetes mellitus without complications; Z79.51 Long term (current) use of inhaled steroids; Z79.4 Long term (current) use of insulin; F17.200 Nicotine dependence, unspecified, uncomplicated; F12.90 Cannabis use, unspecified, uncomplicated; Z72.89 Other problems related to lifestyle
CPT/HCPCS: 87635; 99283; Q0244

== ENCOUNTER 2023-12-24 13:34 | Emergency (ER) | payer OTHER ==
[2023-12-24 13:54] VITALS: BP 118/77; PULSE 92; RESP 18; TEMP 98.5
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
[2023-12-24] MEDS: ACETAMINOPHEN TAB 325 MG TAB PO STA (14:23)
--- NOTE | 2023-12-24 14:23 | XR ---
EXAMINATION TYPE: XR chest 2V DATE OF EXAM: 12/24/2023 COMPARISON: Chest x-ray October 31, 2018 HISTORY: Cough TECHNIQUE: Frontal and lateral views of the chest are obtained. FINDINGS: There is no suspicious peripheral focal air space opacity, pleural effusion, or pneumothor ax seen. The cardiac silhouette size is stable and within normal limits. The osseous structures ar e intact. IMPRESSION: No acute pulmonary infiltrate. No significant change from prior.
== END 2023-12-24 15:24 | disposition home or self-care (01) ==
LOC: EC 13:34
DX: B34.9 Viral infection, unspecified (principal); J45.909 Unspecified asthma, uncomplicated; E11.9 Type 2 diabetes mellitus without complications; F17.200 Nicotine dependence, unspecified, uncomplicated; F12.90 Cannabis use, unspecified, uncomplicated; Z79.4 Long term (current) use of insulin; Z79.51 Long term (current) use of inhaled steroids; Z20.822 Contact with and (suspected) exposure to COVID-19
CPT/HCPCS: 71046; 87636; 99285